=== PATIENT | female | born 1940 | race Caucasian/White ===

== ENCOUNTER 2017-06-07 13:45 | Observation (INO) | payer OTHER ==
[~2017-06-07] VITALS: Ht 152.4 cm; Wt 75.0 kg
[2017-06-07] MEDS ORDERED: SODIUM CHLORIDE 0.9% 1000ML 250 ML IV STA (14:16)
[2017-06-07] MEDS ORDERED: SODIUM CHLORIDE 0.9% 1000ML 1,000 ML IV STA (14:16)
--- NOTE | 2017-06-07 14:21 | EMERGENCY ROOM VISIT NOTE ---
History Report prepared by Pedro: Rob Mclean Under the Supervision of: Dr. Lester Jones M.D. First contact with patient: 14:03 Chief Complaint: CONFUSION Stated Complaint: MEMORY LOSS Nursing Triage Summary: triage note: pt son reports pt is confused and noticed it at approx 1315 today. pt denies any injury. pt able to report name and birthday and she is at the hospital, month and that today is tuesday. pt reports president is robin. pt reports year is 1999. pt tearful in triage and reports "why am i confused?" History of Present Illness The patient is a 76 year old female who presents to the Emergency Room with complaints of sudden onset confusion staring around an hour ago. The patient's son states that the patient was okay around 1030 this morning, and then later she started to lose some of her memory. The son states that the patient has never had anything like this before in the past, and she has not had any recent falls or illnesses. The patient denies any shortness of breath, chest pain, urinary symptoms, headache, trouble swallowing or speaking, or vision changes. Her son states that the patient had some headache on the ride over however. She states that she is not on any blood thinners or other medications. Source of History: patient, family Onset: an hour ago Position: other (global) Quality: other (confusion) Timing: other (sudden onset) Associated Symptoms: No chest pain, No SOB, No urinary symptoms Review of Systems See HPI for pertinent positives & negatives. A total of 10 systems reviewed and were otherwise negative. Past Medical & Surgical Medical Problems: (1) Shingles Surgical Problems: (1) H/O: hysterectomy (2) History of appendectomy Old medical records were reviewed. Nurse's notes were reviewed and I agree with. Family History Diabetes mellitus FH: lung disease FHx: cancer FHx: gallbladder disease Hypertension Social History Smoking Status: Never Smoker Marital Status: Housing Status: lives with family Occupation Status: retired Current/Historical Medications No Active Prescriptions or Reported Meds Allergies Coded Allergies: Naproxen (Verified Allergy, Intermediate, itch, 06/07/17) Codeine (Verified Allergy, Unknown, unknown, 06/07/17) Pseudoephedrine (Verified Adverse Reaction, Intermediate, saw black spots , 06/07/17) Physical Exam Vital Signs Date Time Temp Pulse Resp B/P (MAP) Pulse Ox O2 Delivery O2 Flow Rate FiO2 06/07/17 17:01 66 18 166/82 97 06/07/17 15:26 68 16 146/94 97 06/07/17 14:13 98 Room Air 06/07/17 14:12 73 20 181/98 96 Room Air 06/07/17 14:05 79 06/07/17 13:51 36.6 75 18 196/107 98 Room Air Physical Exam General: Non-ill appearing older female in no acute distress. Answering most questions appropriately. Alert to person place but not date. HEENT: Normal cephalic atraumatic. Pupils are equal round and reactive to light. Sclerae are anicteric. Extraocular movements are intact. Oropharynx is pink with moist mucous membranes. No swelling of the mouth lips or tongue. Neck: Supple with a midline trachea. No meningeal signs or stiffness, no JVD or bruits. No Stridor. Chest: Clear to auscultation bilaterally. No wheezes or rhonchi. No increased work of breathing. Heart: regular rate and rhythm. Abdomen: Soft nontender, nondistended without rebound guarding or rigidity. Extremities: No cyanosis clubbing or edema. No calf tenderness or assymetry Spine/Back. Non tender to palpation. No CVA tenderness Skin: Good turgor without rashes. Neurologic exam: Normal speech. Able to read and name items. No tremor. Finger to nose intact. Cranial nerves two through 12 are intact. Motor and sensation are intact and symmetrical throughout. Medical Decision & Procedures ER Provider Diagnostic Interpretation: Radiology results as stated below per my review and radiologist interpretation: CT HEAD WITHOUT CONTRAST (CT) CLINICAL HISTORY: episode of confusion MEMORY LOSS COMPARISON STUDY: No previous studies for comparison. TECHNIQUE: Axial CT of the brain is performed from the vertex to the skull base. IV contrast was not administered for this examination. A dose lowering technique was utilized adhering to the principles of ALARA. CT DOSE: 638.56 mGycm FINDINGS: No intra or extra-axial mass lesions are visualized. There is no CT evidence of acute cortical infarction. There is no evidence of midline shift. There is no acute hemorrhage. No calvarial fractures are visualized. There are minor white matter hypodensities likely on a small vessel basis. There is no evidence of pathologic ventricular dilatation. There is no evidence of acute sinusitis IMPRESSION: No acute intracranial findings. Electronically signed by: Domenic Gonzalez M.D. 06/07/2017 2:27 PM Dictated Date/Time: 06/07/2017 2:26 PM CHEST ONE VIEW PORTABLE CLINICAL HISTORY: Atypical chest pain COMPARISON STUDY: No previous studies for comparison. FINDINGS: There is a contour deformity of the left hemidiaphragm likely representing a focal eventration. The heart is normal in size. There is no failure. There is no focal pulmonary consolidation. There are no pleural effusions.[ IMPRESSION: Contour deformity of the left hemidiaphragm, likely secondary to a focal eventration. Otherwise negative AP portable chest Electronically signed by: Domenic Gonzalez M.D. 06/07/2017 2:44 PM Dictated Date/Time: 06/07/2017 2:43 PM Laboratory Results 06/07/17 14:35 Red Blood Count 3.99, Mean Corpuscular Volume 90.7, Mean Corpuscular Hemoglobin 29.3, Mean Corpuscular Hemoglobin Concent 32.3, Mean Platelet Volume 8.9, Neutrophils (%) (Auto) 57.9, Lymphocytes (%) (Auto) 30.1, Monocytes (%) (Auto) 8.9, Eosinophils (%) (Auto) 2.0, Basophils (%) (Auto) 0.8, Neutrophils # (Auto) 3.46, Lymphocytes # (Auto) 1.80, Monocytes # (Auto) 0.53, Eosinophils # (Auto) 0.12, Basophils # (Auto) 0.05 06/07/17 14:20 Test 06/07/17 14:05 06/07/17 14:20 06/07/17 14:35 06/07/17 14:42 Urine Color YELLOW Urine Appearance CLEAR (CLEAR) Urine pH 7.5 (4.5-7.5) Urine Specific [place] 1.013 (1.000-1.030) Urine Protein NEG (NEG) Urine Glucose (UA) NEG (NEG) Urine Ketones NEG (NEG) Urine Occult Blood NEG (NEG) Urine Nitrite NEG (NEG) Urine Bilirubin NEG (NEG) Urine Urobilinogen NEG (NEG) Urine Leukocyte Esterase NEG (NEG) Anion Gap 5.0 mmol/L (3-11) Est Creatinine Clear Calc Drug Dose 48.6 ml/min Estimated GFR () 71.5 Estimated GFR (Non- 61.7 BUN/Creatinine Ratio 14.8 (10-20) Calcium Level 9.7 mg/dl (8.5-10.1) Total Bilirubin 0.3 mg/dl (0.2-1) Direct Bilirubin < 0.1 mg/dl (0-0.2) Aspartate Amino Transf (AST/SGOT) 16 U/L (15-37) Alanine Aminotransferase (ALT/SGPT) 27 U/L (12-78) Alkaline Phosphatase 66 U/L (45-117) Total Protein 7.3 gm/dl (6.4-8.2) Albumin 3.9 gm/dl (3.4-5.0) Lipase 151 U/L (73-393) White Blood Count 7.48 K/uL (4.8-10.8) Red Blood Count 3.99 M/uL (4.2-5.4) Hemoglobin 11.7 g/dL (12.0-16.0) Hematocrit 36.2 % (37-47) Mean Corpuscular Volume 90.7 fL (80-100) Mean Corpuscular Hemoglobin 29.3 pg (25-34) Mean Corpuscular Hemoglobin Concent 32.3 g/dl (32-36) Platelet Count 246 K/uL (130-400) Mean Platelet Volume 8.9 fL (7.4-10.4) Neutrophils (%) (Auto) 57.9 % Lymphocytes (%) (Auto) 30.1 % Monocytes (%) (Auto) 8.9 % Eosinophils (%) (Auto) 2.0 % Basophils (%) (Auto) 0.8 % Neutrophils # (Auto) 3.46 K/uL (1.4-6.5) Lymphocytes # (Auto) 1.80 K/uL (1.2-3.4) Monocytes # (Auto) 0.53 K/uL (0.11-0.59) Eosinophils # (Auto) 0.12 K/uL (0-0.5) Basophils # (Auto) 0.05 K/uL (0-0.2) RDW Standard Deviation 45.4 fL (36.4-46.3) RDW Coefficient of Variation 13.8 % (11.5-14.5) Immature Granulocyte % (Auto) 0.3 % Immature Granulocyte # (Auto) 0.02 K/uL (0.00-0.02) Prothrombin Time 10.7 SECONDS (9.0-12.0) Prothromb Time International Ratio 1.0 (0.9-1.1) Activated Partial Thromboplast Time 26.2 SECONDS (21.0-31.0) Partial Thromboplastin Ratio 1.0 Bedside Troponin I < 0.030 ng/ml (0-0.045) Test 06/07/17 14:44 Bedside Glucose 107 mg/dl (70-90) Laboratory studies as stated above per my review. Medications Administered Medications (Trade) Dose Ordered Sig/Omayra Route Start Time Stop Time Status Last Admin Dose Admin Sodium Chloride 250 ml @ 999 mls/hr Q16M STAT IV 06/07/17 14:16 06/07/17 14:31 DC 06/07/17 14:46 999 MLS/HR Sodium Chloride 1,000 ml @ 100 mls/hr Q10H STAT IV 06/07/17 14:16 06/07/17 17:50 DC 06/07/17 14:46 100 MLS/HR Aspirin (Aspirin Chew) 324 mg NOW STAT PO 06/07/17 15:53 06/07/17 15:54 DC 06/07/17 16:03 324 MG ECG Indication: other (confusion) Rate (beats per minute): 70 Rhythm: normal sinus Findings: no acute ischemic change, no ectopy Comparison ECG Date: no prior available ED Course 1403: Past medical records reviewed. The patient was evaluated in room C8, and a complete history and physical examination were performed. 1416: Sodium Chloride 1000 ml @ 100 mls/hr IV, Sodium Chloride 250 ml @ 999 mls/ hr IV 1545: I reevaluated the patient, and she was doing well. I discussed the treatment plan with her, and she was agreeable. 1553: Aspirin 324mg PO 1600: Discussed the patient's case with Tameka Lara. The patient will be evaluated for further management. Medical Decision Differentials include, but are not limited to; transient global amnesia, stroke/ TIA, infection, electrolyte or metabolic abnormality. This patient comes in as described above. She had an episode where she was confused. She has amnesia to events this morning but has long-term memories. She's had no recent illness or fall or trauma. She looks well on exam and answers questions appropriately except for she does not know the date and this is atypical for her. During my exam, she actually seems to be much more lucid than when she presented and her son says that her symptoms have been rapidly clearing. She has no other neurologic exams. I do not think that she is a TPA candidate and I did not call a stroke alert. I think she most likely does have transient global amnesia. CAT scan of her head was unremarkable . she's no acute electrolyte or metabolic abnormalities and has nothing to suggest hypoglycemia. She has nothing to suggest acute coronary syndrome or arrhythmia. She was given aspirin 325 mg chewable. I do think she needs to be admitted to the hospital for further treatment and evaluation and further night neurologic evaluation. I have consulted the [facility] hospitalist who saw her in the emergency department and will admit her for these measures. Medication Reconcilliation Current Medication List: was personally reviewed by me Blood Pressure Screening Patient's blood pressure: Elevated blood pressure Blood pressure disposition: Elevated BP felt to be situational Consults Time Called: 1550 Consulting Physician: Tameka Lara Returned Call: 1600 Discussed the patient's case with Tameka Lara. The patient will be evaluated for further management. Impression Primary Impression: Altered mental state Additional Impression: Transient global amnesia Scribe Attestation The scribe's documentation has been prepared under my direction and personally reviewed by me in its entirety. I confirm that the note above accurately reflects all work, treatment, procedures, and medical decision making performed by me. Departure Information Dispostion Being Evaluated By Hospitalist Prescriptions No Active Prescriptions or Reported Meds Referrals Miasel Pearson III, M.D. (PCP) Patient Instructions My [facility] Problem Qualifiers
--- NOTE | 2017-06-07 14:28 | DIAGNOSTIC IMAGING REPORT ---
CT HEAD WITHOUT CONTRAST (CT) CLINICAL HISTORY: episode of confusion MEMORY LOSS COMPARISON STUDY: No previous studies for comparison. TECHNIQUE: Axial CT of the brain is performed from the vertex to the skull base. IV contrast was not administered for this examination. A dose lowering technique was utilized adhering to the principles of ALARA. CT DOSE: 638.56 mGycm FINDINGS: No intra or extra-axial mass lesions are visualized. There is no CT evidence of acute cortical infarction. There is no evidence of midline shift. There is no acute hemorrhage. No calvarial fractures are visualized. There are minor white matter hypodensities likely on a small vessel basis. There is no evidence of pathologic ventricular dilatation. There is no evidence of acute sinusitis IMPRESSION: No acute intracranial findings. Electronically signed by: Domenic Gonzalez M.D. 06/07/2017 2:27 PM Dictated Date/Time: 06/07/2017 2:26 PM
--- NOTE | 2017-06-07 14:45 | DIAGNOSTIC IMAGING REPORT ---
CHEST ONE VIEW PORTABLE CLINICAL HISTORY: Atypical chest pain COMPARISON STUDY: No previous studies for comparison. FINDINGS: There is a contour deformity of the left hemidiaphragm likely representing a focal eventration. The heart is normal in size. There is no failure. There is no focal pulmonary consolidation. There are no pleural effusions.[ IMPRESSION: Contour deformity of the left hemidiaphragm, likely secondary to a focal eventration. Otherwise negative AP portable chest Electronically signed by: Domenic Gonzalez M.D. 06/07/2017 2:44 PM Dictated Date/Time: 06/07/2017 2:43 PM
[2017-06-07 14:59] LABS: URINE APPEARANCE CLEAR (CLEAR); URINE BILIRUBIN NEG (NEG); URINE COLOR YELLOW; URINE NITRITE NEG (NEG); URINE PH 7.5 (4.5-7.5); URINE SPECIFIC GRAVITY 1.013 (1.000-1.030); UROBILINOGEN NEG (NEG)
[2017-06-07 15:11] LABS: MANUAL MICROSCOPIC REQUIRED? NO; REVIEW REQ? NO
[2017-06-07 15:22] LABS: PROTHROMBIN TIME (PATIENT) 10.7 SECONDS (9.0-12.0)
[2017-06-07 15:28] LABS: RED BLOOD COUNT 3.99 M/uL (4.2-5.4); WHITE BLOOD COUNT 7.48 K/uL (4.8-10.8)
[2017-06-07 15:30] LABS: HEMATOCRIT 36.2 % (37-47)
[2017-06-07 15:31] LABS: MEAN CELL VOLUME 90.7 fL (80-100); MEAN CORPUSCULAR HEMOGLOBIN 29.3 pg (25-34)
[2017-06-07 15:32] LABS: MEAN CORPUSCULAR HGB CONC 32.3 g/dl (32-36)
[2017-06-07 15:33] LABS: MEAN PLATELET VOLUME 8.9 fL (7.4-10.4); PLATELET COUNT 246 K/uL (130-400)
[2017-06-07] MEDS ORDERED: ASPIRIN 81 MG CHEW PO STA (15:53)
[2017-06-07 16:02] LABS: ALT/SGPT 27 U/L (12-78); BLOOD UREA NITROGEN 14 mg/dl (7-18); BUN/CREATININE RATIO 14.8 (10-20); CALCIUM 9.7 mg/dl (8.5-10.1); CARBON DIOXIDE 29 mmol/L (21-32); CHLORIDE 107 mmol/L (98-107); CREATININE 0.91 mg/dl (0.60-1.20); GLUCOSE 91 mg/dl (70-99); POTASSIUM 4.4 mmol/L (3.5-5.1); SODIUM 141 mmol/L (136-145)
[2017-06-07 16:05] LABS: ALKALINE PHOSPHATASE 66 U/L (45-117); AST/SGOT 16 U/L (15-37)
[2017-06-07 16:17] LABS: BASO % 0.8 %; BASO ABS # 0.05 K/uL (0-0.2); COMPLETE YES; IG% 0.3 %; LYMPH % 30.1 %; MONO % 8.9 %; NEUT % 57.9 %
[2017-06-07] MEDS ORDERED: ACETAMINOPHEN 325 MG TAB PO PRN (17:00)
[2017-06-07] MEDS ORDERED: ONDANSETRON INJ 2 MG/ML 2 ML VIAL IV PRN (17:00)
[2017-06-07] MEDS ORDERED: PHARMACIST DISCHARGE MED REC CONSULT PRN (17:15)
[2017-06-07] MEDS ORDERED: POLYETHYLENE (MIRALAX) 17 GM PACK PO PRN (18:00)
[2017-06-07 18:20] VITALS: BP 169/85; PULSE 67; TEMP 36.8; O2SAT 96
--- NOTE | 2017-06-07 18:28 | History and Physical ---
History & Physical Date & Time of Service: Jun 07, 2017 at 17:08 Chief Complaint: Memory Loss Primary Care Physician: Misael Pearson III, M.D. History of Present Illness Source: family Patient is a 76 yo female who was brought to the ER today by her son who noticed the patient was having difficulty remembering anything from today or yesterday. Her daughter who lives with the patient was at the bedside and states she was not present at home this morning, however she was told that the patient was very confused this morning and could not remember things. Last known well time was 12:30 PM. Per the patient's son, she was normal this AM, answering questions and talking. She then went to her car and drove somewhere with her son and following behind, but when they reached the destination the patient sat in her parked car and didn't come out for a while. When she went inside she was talking with her and her son and was saying things that did not make sense and her became angry and was frustrated with her, so the son decided to bring her to the hospital. Her daughter says she is still having confusion and cannot remember things about the last few days, but denies any other changes. The patient reports having occasional dizzy episodes that occur randomly, once while in bed and once while grocery shopping. She had a mechanical fall about 2 weeks ago but denies hitting her head. She otherwise denies any changes to her health, any complaints , any medication ingestion, and denies any exposure to insect bites or unusual animals other than her own. Family History Diabetes mellitus FH: lung disease FHx: cancer FHx: gallbladder disease Hypertension Social History Smoking Status: Never Smoker Alcohol Use: occasionally Marital Status: Housing status: lives with family Occupational Status: retired Multi-Drug Resistant Organisms History of MDRO: No Allergies Coded Allergies: Naproxen (Verified Allergy, Intermediate, itch, 06/07/17) Codeine (Verified Allergy, Unknown, unknown, 06/07/17) Pseudoephedrine (Verified Adverse Reaction, Intermediate, saw black spots , 06/07/17) Home Medications No Active Prescriptions or Reported Meds Review of Systems Constitutional: No fever, No chills, No weight loss, No weakness Eyes: No worsening of vision, No eye pain, No redness, No diplopia ENT: No hearing loss, No nasal symptoms, No sore throat, No trouble swallowing Respiratory: No cough, No wheezing, No shortness of breath, No hemoptysis Cardiovascular: No chest pain, No edema, No claudication, No palpitations Abdomen: No pain, No nausea, No vomiting, No diarrhea, No constipation Musculoskeletal: No joint pain, No muscle pain, No swelling, No calf pain Genitourinary - Female: No dysuria, No urinary frequency, No urinary urgency, No problem reported Neurologic: + memory loss, No numbness/tingling, No vertigo, No balance problems Psychiatric: No depression symptoms, No anxiety, No insomnia, No substance abuse Endocrine: No problem reported Hematologic / Lymphatic: No problem reported Integumentary: No rash, No bleeding, No problem reported Physical Exam Vital Signs Date Time Temp Pulse Resp B/P (MAP) Pulse Ox O2 Delivery O2 Flow Rate FiO2 06/07/17 17:01 66 18 166/82 97 06/07/17 15:26 68 16 146/94 97 06/07/17 14:13 98 Room Air 06/07/17 14:12 73 20 181/98 96 Room Air 06/07/17 14:05 79 06/07/17 13:51 36.6 75 18 196/107 98 Room Air General Appearance: WD/WN, no apparent distress Head: normocephalic, atraumatic Eyes: PERRL, EOMI, sclerae normal ENT: hearing grossly normal, pharynx normal Neck: supple, no JVD, no carotid bruits, trachea midline Respiratory/Chest: chest non-tender, lungs clear, normal breath sounds, no respiratory distress Cardiovascular: regular rate, rhythm, no edema, no gallop, no JVD, no murmur Abdomen/GI: normal bowel sounds, non tender, soft, no organomegaly Back: normal range of motion Extremities/Musculoskelatal: no calf tenderness, normal capillary refill, normal range of motion, + pedal edema Neurologic/Psych: no motor/sensory deficits, alert, normal mood/affect, oriented x 3 Skin: normal color, warm/dry, no rash Diagnostics Laboratory Results Results Past 24 Hours Test 06/07/17 14:05 06/07/17 14:20 06/07/17 14:35 06/07/17 14:42 Range/Units Urine Color YELLOW Urine Appearance CLEAR CLEAR Urine pH 7.5 4.5-7.5 Urine Specific [place] 1.013 1.000-1.030 Urine Protein NEG NEG Urine Glucose (UA) NEG NEG Urine Ketones NEG NEG Urine Occult Blood NEG NEG Urine Nitrite NEG NEG Urine Bilirubin NEG NEG Urine Urobilinogen NEG NEG Urine Leukocyte Esterase NEG NEG Sodium Level 141 136-145 mmol/L Potassium Level 4.4 3.5-5.1 mmol/L Chloride Level 107 98-107 mmol/L Carbon Dioxide Level 29 21-32 mmol/L Anion Gap 5.0 3-11 mmol/L Blood Urea Nitrogen 14 7-18 mg/dl Creatinine 0.91 0.60-1.20 mg/dl Est Creatinine Clear Calc Drug Dose 48.6 ml/min Estimated GFR () 71.5 Estimated GFR (Non- 61.7 BUN/Creatinine Ratio 14.8 10-20 Random Glucose 91 70-99 mg/dl Calcium Level 9.7 8.5-10.1 mg/dl Total Bilirubin 0.3 0.2-1 mg/dl Direct Bilirubin < 0.1 0-0.2 mg/dl Aspartate Amino Transf (AST/SGOT) 16 15-37 U/L Alanine Aminotransferase (ALT/SGPT) 27 12-78 U/L Alkaline Phosphatase 66 45-117 U/L Total Protein 7.3 6.4-8.2 gm/dl Albumin 3.9 3.4-5.0 gm/dl Lipase 151 73-393 U/L White Blood Count 7.48 4.8-10.8 K/uL Red Blood Count 3.99 4.2-5.4 M/uL Hemoglobin 11.7 12.0-16.0 g/dL Hematocrit 36.2 37-47 % Mean Corpuscular Volume 90.7 80-100 fL Mean Corpuscular Hemoglobin 29.3 25-34 pg Mean Corpuscular Hemoglobin Concent 32.3 32-36 g/dl Platelet Count 246 130-400 K/uL Mean Platelet Volume 8.9 7.4-10.4 fL Neutrophils (%) (Auto) 57.9 % Lymphocytes (%) (Auto) 30.1 % Monocytes (%) (Auto) 8.9 % Eosinophils (%) (Auto) 2.0 % Basophils (%) (Auto) 0.8 % Neutrophils # (Auto) 3.46 1.4-6.5 K/uL Lymphocytes # (Auto) 1.80 1.2-3.4 K/uL Monocytes # (Auto) 0.53 0.11-0.59 K/uL Eosinophils # (Auto) 0.12 0-0.5 K/uL Basophils # (Auto) 0.05 0-0.2 K/uL RDW Standard Deviation 45.4 36.4-46.3 fL RDW Coefficient of Variation 13.8 11.5-14.5 % Immature Granulocyte % (Auto) 0.3 % Immature Granulocyte # (Auto) 0.02 0.00-0.02 K/uL Prothrombin Time 10.7 9.0-12.0 SECONDS Prothromb Time International Ratio 1.0 0.9-1.1 Activated Partial Thromboplast Time 26.2 21.0-31.0 SECONDS Partial Thromboplastin Ratio 1.0 Bedside Troponin I < 0.030 0-0.045 ng/ml Test 06/07/17 14:44 Range/Units Bedside Glucose 107 70-90 mg/dl Microbiology Results 06/07/17 Urine Culture, Received Pending Impression Assessment and Plan AMNESIA: -last known well at 12:30 PM today -need to rule out CVA -has lost memory of earlier today, most of yester, and some of Tuesday -also has intermittent dizziness without any warning -CT head negative -will consult Neurology -obtain MRA head and neck and MRI brain -TTE ordered -check for lyme, RPR, B12 and folate -no prior medical history, no history of HTN, will therefore just monitor BP for now -obtain lipid panel and HbA1c -start aspirin and statin -fall precautions -obtain serial CM Level of Care Telemetry Resuscitation Status FULL RESUSCITATION VTE Prophylaxis VTE Risk Assessment Done? Y/N: Yes Risk Level: Moderate Given or contraindicated: Enoxaparin (Lovenox)SQ
[2017-06-07 19:24] VITALS: BP 169/85; PULSE 67; TEMP 36.8; O2SAT 96; Ht 152.4 cm; Wt 75.0 kg
--- NOTE | 2017-06-07 19:29 | DIAGNOSTIC IMAGING REPORT ---
ORBITS FOR MRI CLINICAL HISTORY: 76 years-old Female presenting with MRI CLEARANCE, DAUGHTER DID SCREENING. TECHNIQUE: 3 views of the orbits were obtained. COMPARISON: CT head from 06/07/2017. FINDINGS: No radiopaque or metallic object projects over the orbits. Paranasal sinuses grossly clear. Bony nasal septum midline. Visualized portion of the calvarium grossly normal. IMPRESSION: No intraorbital metallic foreign body to preclude MRI. Electronically signed by: Isacc Martinez M.D. 06/07/2017 7:28 PM Dictated Date/Time: 06/07/2017 7:26 PM
[2017-06-07] MEDS ORDERED: IV FLUIDS COMPLETED PRN (19:45)
[2017-06-07 19:55] LABS: LYME DISEASE AB IGG NEG (NEG)
[2017-06-07 19:56] LABS: LYME DISEASE AB IGM NEG (NEG)
[2017-06-07 20:00] VITALS: O2SAT 96
[2017-06-07] MEDS ORDERED: ENOXAPARIN 30 MG/0.3 ML SYR SC SCH (21:00)
--- NOTE | 2017-06-07 21:26 | DIAGNOSTIC IMAGING REPORT ---
BRAIN WITHOUT CONTRAST CLINICAL HISTORY: 76 years-old Female presenting with Stroke. TECHNIQUE: Multisequence, multiplanar MR imaging of the brain was performed without the use of intravenous contrast. IV contrast: None. COMPARISON: CT head from 06/07/2017. FINDINGS: Ventricular and sulcal enlargement with proportional parenchymal volume loss, likely age-related. Periventricular and subcortical white matter T2/FLAIR hyperintensity, nonspecific but likely chronic small vessel ischemic change. No mass effect or midline shift. No hemorrhage or acute territorial infarct. No extra-axial fluid collection. T2 skull base flow voids preserved. Bilateral mary's igloo lenses are not present. Paranasal sinuses and mastoid air cells clear. Calvarium intact. IMPRESSION: No acute intracranial abnormality. Electronically signed by: Isacc Martinez M.D. 06/07/2017 9:25 PM Dictated Date/Time: 06/07/2017 9:22 PM
[2017-06-07] MEDS ORDERED: GADAVIST IV PRN (21:30)
--- NOTE | 2017-06-07 21:30 | DIAGNOSTIC IMAGING REPORT ---
MRA NECK COMBO CLINICAL HISTORY: 76 years-old Female presenting with stroke. TECHNIQUE: MR angiography of the neck was performed before and after the administration of intravenous contrast. 3-D volumetric and/or maximum intensity projection (MIP) images were subsequently reconstructed for review. IV contrast: 7 mL of Gadavist. All measurements were calculated based on NASCET-like criteria. COMPARISON: None. FINDINGS: Bilateral common carotid and internal carotid arteries patent. Tortuosity of the internal carotid arteries may suggest chronic hypertension. Codominant vertebral arteries, which are patent. No significant stenosis, aneurysm, or vessel occlusion. Origins of the cervical vessels patent. Three-vessel aortic arch. Limited intracranial vessel evaluation is within normal limits. IMPRESSION: 1. No significant stenosis, aneurysm, or focal vessel occlusion. Electronically signed by: Isacc Martinez M.D. 06/07/2017 9:29 PM Dictated Date/Time: 06/07/2017 9:25 PM
[2017-06-07 23:17] LABS: RAPID PLASMA REAGIN NONREACTIVE (NONREACT)
[2017-06-07 23:31] VITALS: BP 163/83; PULSE 61; TEMP 36.9; O2SAT 97
[2017-06-07 23:46] LABS: CKMB/CK RATIO 2.2 (0-3.0)
[2017-06-08 04:45] VITALS: BP 129/84; PULSE 63; TEMP 36.6; O2SAT 96
[2017-06-08 07:36] LABS: BASO % 0.9 %; BASO ABS # 0.05 K/uL (0-0.2); COMPLETE YES; EOS % 3.7 %; HEMATOCRIT 37.4 % (37-47); IG% 0.2 %; LYMPH % 41.7 %; LYMPH ABS # 2.37 K/uL (1.2-3.4); MEAN CORPUSCULAR HEMOGLOBIN 30.6 pg (25-34); MEAN CORPUSCULAR HGB CONC 34.8 g/dl (32-36); MEAN PLATELET VOLUME 9.6 fL (7.4-10.4); MONO % 10.5 %; PLATELET COUNT 187 K/uL (130-400); RED BLOOD COUNT 4.25 M/uL (4.2-5.4); WHITE BLOOD COUNT 5.69 K/uL (4.8-10.8)
[2017-06-08 07:53] LABS: BLOOD UREA NITROGEN 13 mg/dl (7-18); BUN/CREATININE RATIO 16.1 (10-20); CALCIUM 8.8 mg/dl (8.5-10.1); CARBON DIOXIDE 28 mmol/L (21-32); CHLORIDE 111 mmol/L (98-107); CHOLESTEROL 211 mg/dl (0-200); CREATININE 0.79 mg/dl (0.60-1.20); GLUCOSE 86 mg/dl (70-99); SODIUM 143 mmol/L (136-145); TRIGLYCERIDES 149 mg/dl (0-150); VERY LOW DENSITY LIPOPROT CALC 30 mg/dl
[2017-06-08 08:07] LABS: CHOLESTEROL/HDL RATIO 4.2; CKMB/CK RATIO 2.2 (0-3.0); HDL CHOLESTEROL 50 mg/dl; LDL CHOLESTEROL CALCULATED 131 mg/dl
[2017-06-08 08:24] LABS: ESTIMATED AVERAGE GLUCOSE 100 mg/dl; HA1C FLAG Normal (Normal)
[2017-06-08] MEDS ORDERED: ASPIRIN 81 MG ECTAB PO SCH (09:00)
[2017-06-08] MEDS ORDERED: ATORVASTATIN 10 MG TAB PO SCH (09:00)
--- NOTE | 2017-06-08 09:11 | ECHOCARDIOGRAM REPORT ---
*NOTICE TO RECEIVING [facility] [employer] This information is strictly Confidential and protected under [place] law. [place] law prohibits you from making any further disclosure of this information unless further disclosure is expressly permitted by the written consent of the person to whom it pertains or is authorized by law. A general authorization for the release of medical or other information is not sufficient for this purpose. Hospital accepts no responsibility if the information is made available to any other person, INCLUDING THE PATIENT. Interpretation Summary * Name: FABIAN SANTIAGO Study Date: 06/08/2017 07:37 AM BP: 129/84 mmHg * Patient Location: [facility] HR: 63 * : 1940 (M/d/yyyy) Gender: Female Height: 60 in * Age: 76 yrs Ethnicity: CA Weight: 167 lb * Ordering Physician: Araseli Waller * Referring Physician: Self, Referred * Performed By: Jennie Snider RDCS * * Reason For Study: Cerebral ischemia/embolus * BSA: 1.7 m2 * -- Conclusions -- * Normal LV chamber size with mild concentric LVH. * Hyperdynamic LV systolic function, EF >70%. * No segmental left ventricular wall motion abnormalities are noted. * Grade I diastolic dysfunction. * No significant valvular pathology. * The interatrial septum is intact with no evidence for an atrial septal defect. * Injection of contrast documented no interatrial shunt. Procedure Details * A complete two-dimensional transthoracic echocardiogram was performed (2D, M-mode, Doppler and color flow Doppler). * A saline contrast injection was performed to assess for cardiac shunting. * The injection was performed through an intravenous line in the right arm. * The attending nurse who injected the saline contrast was Francesca Antoine RN. * A total of 20 cc of agitated saline was given. Left Ventricle * The left ventricle is normal in size. * There is no thrombus. * There is mild concentric left ventricular hypertrophy. * Ejection Fraction = >70 %. * The left ventricle is hyperdynamic. * No segmental left ventricular wall motion abnormalities are noted. * The left ventricular wall motion is normal. Right Ventricle * The right ventricular cavity size is normal (basal dimension <4.2 cm in right ventricular apical 4-chamber view). * The right ventricular systolic function is normal as assessed by tricuspid annular plane systolic excursion (TAPSE) (normal >1.5 cm). Atria * The left atrial size is normal. * Right atrial size is normal. * The interatrial septum is intact with no evidence for an atrial septal defect. * Injection of contrast documented no interatrial shunt. Mitral Valve * The mitral valve is normal in structure and function. Tricuspid Valve * The tricuspid valve is normal in structure and function. Aortic Valve * The aortic valve is normal in structure and function. Pulmonic Valve * The pulmonary valve is not well seen, but the Doppler examination is normal without significant regurgitation or stenosis. Great Vessels * The aortic root and proximal ascending aorta are normal sized. Pericardium/Pleural * There is no pericardial effusion. Left Ventricular Diastolic Function * Grade I diastolic dysfunction, (abnormal relaxation pattern). MMode 2D Measurements and Calculations IVSd 1.1 cm LVIDd 3.2 cm LVIDs 2.0 cm LVPWd 1.1 cm IVS/LVPW 1.0 FS 36.7 % EDV(Teich) 39.8 ml ESV(Teich) 12.8 ml EF(Teich) 68.0 % EDV(cubed) 31.7 ml ESV(cubed) 8.0 ml EF(cubed) 74.7 % LV mass(C)d 105.2 grams LV mass(C)dI 60.8 grams/m\S\2 SV(Teich) 27.1 ml SI(Teich) 15.7 ml/m\S\2 SV(cubed) 23.6 ml SI(cubed) 13.7 ml/m\S\2 Ao root diam 2.8 cm Ao root area 6.0 cm\S\2 ACS 1.5 cm LA dimension 2.9 cm asc Aorta Diam 2.8 cm LA/Ao 1.0 LVOT diam 2.0 cm LVOT area 3.0 cm\S\2 LVAd ap4 20.7 cm\S\2 LVLd ap4 7.3 cm EDV(MOD-sp4) 48.3 ml EDV(sp4-el) 49.9 ml LVAs ap4 9.2 cm\S\2 LVLs ap4 5.8 cm ESV(MOD-sp4) 12.7 ml ESV(sp4-el) 12.4 ml EF(MOD-sp4) 73.6 % EF(sp4-el) 75.2 % LVAd ap2 17.8 cm\S\2 LVLd ap2 7.3 cm EDV(MOD-sp2) 35.2 ml EDV(sp2-el) 36.5 ml LVAs ap2 8.4 cm\S\2 LVLs ap2 6.5 cm ESV(MOD-sp2) 10.3 ml ESV(sp2-el) 9.2 ml EF(MOD-sp2) 70.6 % EF(sp2-el) 74.8 % LVLd %diff 0.90 % EDV(MOD-bp) 41.4 ml LVLs %diff 10.2 % ESV(MOD-bp) 11.6 ml EF(MOD-bp) 72.1 % SV(MOD-sp4) 35.5 ml SI(MOD-sp4) 20.6 ml/m\S\2 SV(MOD-sp2) 24.8 ml SI(MOD-sp2) 14.4 ml/m\S\2 SV(MOD-bp) 29.9 ml SI(MOD-bp) 17.3 ml/m\S\2 SV(sp4-el) 37.5 ml SI(sp4-el) 21.7 ml/m\S\2 SV(sp2-el) 27.3 ml SI(sp2-el) 15.8 ml/m\S\2 Doppler Measurements and Calculations MV E max aline 78.5 cm/sec MV A max aline 94.8 cm/sec MV E/A 0.83 MV dec time 0.25 sec Ao V2 max 124.3 cm/sec Ao max PG 6.2 mmHg Ao max PG (full) 3.3 mmHg CESILIA(V,A) 2.1 cm\S\2 CESILIA(V,D) 2.1 cm\S\2 LV V1 max PG 2.9 mmHg LV V1 max 85.4 cm/sec PA V2 max 81.4 cm/sec PA max PG 2.7 mmHg PA acc slope 469.8 cm/sec\S\2 PA acc time 0.13 sec PI max aline 157.5 cm/sec PI max PG 9.9 mmHg PI dec slope 244.8 cm/sec\S\2 PI P1/2t 188.4 msec TR max aline 225.6 cm/sec PA pr(Accel) 20.4 mmHg
[2017-06-08 11:30] VITALS: BP 147/82; PULSE 61; TEMP 36.4; O2SAT 96
--- NOTE | 2017-06-08 15:43 | Neurology Consultation ---
Neurology Consultation Date of Consultation: Jun 08, 2017. Attending Physician: Efrain Weston M.D. Primary Care Physician: Misael Pearson III, M.D. Reason for Consultation: amnesia History of Present Illness Source: patient Dunia is a 76 yo female who was brought to the ER today by her son who noticed the patient was having difficulty remembering anything from today or yesterday. Last known well time was 12:30 PM. Per the patient's son reported in chart, she was normal this AM, answering questions and talking. She then went to her car and drove somewhere with her son and following behind, but when they reached the destination the patient sat in her parked car and didn't come out for a while. When she went inside she was talking with her and her son and was saying things that did not make sense and her became angry and was frustrated with her, so the son decided to bring her to the hospital. She had a mechanical fall about 2 weeks ago but denies hitting her head. She states she still does not remember anything after she gave her son a sandwich for lunch. She then remembers being in the ED and talking to some people and her son stating she coming around. She does not remember anything of the events prior to this. denies no increased stressors, CP, SOB,abdominal pain, weakness, numbness, tingling, history of seizure, N, V, cough, fever chills, night sweats , vision changes, hearing loss, swallow difficulty. currently has a slight pressure headache Past Medical/Surgical History Medical Problems: (1) Altered mental state Status: Acute (2) Transient global amnesia Status: Acute Social History Smoking Status: Never smoker Alcohol Use: occasionally Marital Status: Housing Status: lives with family Occupation Status: retired Allergies Coded Allergies: Naproxen (Verified Allergy, Intermediate, itch, 06/07/17) Codeine (Verified Allergy, Unknown, unknown, 06/07/17) Pseudoephedrine (Verified Adverse Reaction, Intermediate, saw black spots , 06/07/17) Current Inpatient Medications Current Inpatient Medications Medications (Trade) Dose Ordered Sig/Omayra Route Start Time Stop Time Status Last Admin Dose Admin Enoxaparin Sodium (Lovenox Inj) 30 mg HS SC 06/07/17 21:00 07/07/17 20:59 06/07/17 21:29 30 MG Acetaminophen (Tylenol Tab) 650 mg Q4H PRN PO 06/07/17 17:00 07/07/17 16:59 Ondansetron HCl (Zofran Inj) 4 mg Q6H PRN IV 06/07/17 17:00 07/07/17 16:59 Aspirin (Ecotrin Tab) 81 mg QAM PO 06/08/17 09:00 07/08/17 08:59 06/08/17 08:39 81 MG Polyethylene (Miralax Powder Packet) 17 gm DAILY PRN PO 06/07/17 18:00 07/07/17 17:59 Atorvastatin Calcium (Lipitor Tab) 10 mg QAM PO 06/08/17 09:00 07/08/17 08:59 06/08/17 08:39 10 MG Miscellaneous Information (Pharmacist Discharge Med Rec Consult) 1 ea UD PRN N/A 06/07/17 17:15 07/07/17 17:14 Miscellaneous (Iv Fluids Completed) 1 ea PRN PRN N/A 06/07/17 19:45 06/07/18 19:44 Gadobutrol (Gadavist) 7 mmol UD PRN IV 06/07/17 21:30 06/11/17 21:29 Physical Exam Vital Signs (Past 24 Hrs): Date Time Temp Pulse Resp B/P (MAP) Pulse Ox O2 Delivery O2 Flow Rate FiO2 06/08/17 12:00 Room Air 06/08/17 11:30 36.4 61 16 147/82 (103) 96 Room Air 06/08/17 08:00 Room Air 06/08/17 04:45 36.6 63 20 129/84 (99) 96 Room Air 06/08/17 04:05 Room Air 06/08/17 00:05 Room Air 06/08/17 00:05 Room Air 06/07/17 23:31 36.9 61 20 163/83 (109) 97 Room Air 06/07/17 20:00 96 Room Air 06/07/17 19:24 36.8 67 18 169/85 96 Room Air 06/07/17 18:20 36.8 67 18 169/85 (113) 96 Room Air 06/07/17 17:01 66 18 166/82 97 06/07/17 15:26 68 16 146/94 97 Physical Exam: Constitutional: appearance nourished, healthy and normal Ears, Nose, Mouth and Throat: mucous membranes moist, no injection and skin normal, eyes normal Cardiovascular: normal S-1 and S-2 and regular rate and rhythm Respiratory: clear to auscultation (CTA) and no rales, rhonchi or wheeze Musculoskeletal: no peripheral edema and good distal pulses Skin: no stigmata of neurocutaneous disease noted and normal and intact Eyes: extraocular muscles intact (EOMI) and pupils equal, round and reactive to light (PERRL) NEUROLOGIC EXAMINATION: Mental status: Alert and interactive Oriented to full date and location Oriented to person Speech fluent with no evidence of aphasia Cranial Nerves smile eye brow raise symmetric, tongue midline Reflexes: Deep tendon reflexes were symmetrical and graded 2/5. Plantar responses were flexor. Sensory: vibration , cool touch in tact Coordination: Romberg absent Gait/Stance: Posture normal. Gait normal: with steady with steps, base, turning, heel tandem gait. Motor: Negative for pronator drift of out stretched arms with eyes closed. 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, intrinsics 5/5 bilaterally, hip flex plantar flex ext bilaterally 5/5 Laboratory Results Past 24 Hours: 06/08/17 07:23 Red Blood Count 4.25, Mean Corpuscular Volume 88.0, Mean Corpuscular Hemoglobin 30.6, Mean Corpuscular Hemoglobin Concent 34.8, Mean Platelet Volume 9.6, Neutrophils (%) (Auto) 43.0, Lymphocytes (%) (Auto) 41.7, Monocytes (%) (Auto) 10.5, Eosinophils (%) (Auto) 3.7, Basophils (%) (Auto) 0.9, Neutrophils # (Auto ) 2.45, Lymphocytes # (Auto) 2.37, Monocytes # (Auto) 0.60, Eosinophils # (Auto ) 0.21, Basophils # (Auto) 0.05 06/08/17 07:23 Test 06/07/17 18:22 06/08/17 07:23 Vitamin B12 Level 788 pg/mL (211-911) Folate > 24.00 ng/mL (>5.38) Rapid Plasma Reagin NONREACTIVE (NONREACT) Lyme Disease IgG Antibody NEG (NEG) Lyme Disease IgM Antibody NEG (NEG) White Blood Count 5.69 K/uL (4.8-10.8) Red Blood Count 4.25 M/uL (4.2-5.4) Hemoglobin 13.0 g/dL (12.0-16.0) Hematocrit 37.4 % (37-47) Mean Corpuscular Volume 88.0 fL (80-100) Mean Corpuscular Hemoglobin 30.6 pg (25-34) Mean Corpuscular Hemoglobin Concent 34.8 g/dl (32-36) Platelet Count 187 K/uL (130-400) Mean Platelet Volume 9.6 fL (7.4-10.4) Neutrophils (%) (Auto) 43.0 % Lymphocytes (%) (Auto) 41.7 % Monocytes (%) (Auto) 10.5 % Eosinophils (%) (Auto) 3.7 % Basophils (%) (Auto) 0.9 % Neutrophils # (Auto) 2.45 K/uL (1.4-6.5) Lymphocytes # (Auto) 2.37 K/uL (1.2-3.4) Monocytes # (Auto) 0.60 K/uL (0.11-0.59) Eosinophils # (Auto) 0.21 K/uL (0-0.5) Basophils # (Auto) 0.05 K/uL (0-0.2) RDW Standard Deviation 41.0 fL (36.4-46.3) RDW Coefficient of Variation 12.8 % (11.5-14.5) Immature Granulocyte % (Auto) 0.2 % Immature Granulocyte # (Auto) 0.01 K/uL (0.00-0.02) Anion Gap 4.0 mmol/L (3-11) Est Creatinine Clear Calc Drug Dose 55.7 ml/min Estimated GFR () 84.9 Estimated GFR (Non- 73.2 BUN/Creatinine Ratio 16.1 (10-20) Estimated Average Glucose 100 mg/dl Hemoglobin A1c 5.1 % (4.5-5.6) Calcium Level 8.8 mg/dl (8.5-10.1) Total Creatine Kinase 37 U/L (26-192) Creatine Kinase MB 0.8 ng/ml (0.5-3.6) Creatine Kinase MB Ratio 2.2 (0-3.0) Troponin I < 0.015 ng/ml (0-0.045) Triglycerides Level 149 mg/dl (0-150) Cholesterol Level 211 mg/dl (0-200) HDL Cholesterol 50 mg/dl LDL Cholesterol, Calculated 131 mg/dl VLDL Cholesterol, Calculated 30 mg/dl Cholesterol/HDL Ratio 4.2 Thyroid Stimulating Hormone (TSH) 1.070 uIu/ml (0.300-4.500) Imaging MRI brain with and without contrast- Ventricular and sulcal enlargement with proportional parenchymal volume loss, likely age-related. Periventricular and subcortical white matter T2/FLAIR hyperintensity, nonspecific but likely chronic small vessel ischemic change. No mass effect or midline shift. No hemorrhage or acute territorial infarct. No extra-axial fluid collection. T2 skull base flow voids preserved. Bilateral igiugig lenses are not present. Paranasal sinuses and mastoid air cells clear. Calvarium intact. MRA neck - . No significant stenosis, aneurysm, or focal vessel occlusion. TTE- Normal LV chamber size with mild concentric LVH. * Hyperdynamic LV systolic function, EF >70%. * No segmental left ventricular wall motion abnormalities are noted. * Grade I diastolic dysfunction. * No significant valvular pathology. * The interatrial septum is intact with no evidence for an atrial septal defect. * Injection of contrast documented no interatrial shunt. Impression 76 year old female with sudden onset of amnesia currently back to baseline Plan 1. MRI brain no areas of stroke or lesions 2. TTE- no ASD 3. EEG pending official document- read is normal 4. transient global amnesia is a diagnosis of exclusion. no hx of epilepsy, lasted less then 24 hours 5. lyme and RPR negative 6. no new medication started recently 7. aspirin 81 mg and lipitor started would continue I have seen and discussed above patient with Dr Alyse Armas, neurology Pt seen and examined, spoke with son. Pt was awake, alert, functional, kept asking same question. Did not recall that sister (20 years). With neg eval suspect transient global amnesia. Rec asa, control of vascular risk factors. Follow-up with us post dc. Discussed with Dr. Cope. LAUREANO Armas MD
--- NOTE | 2017-06-08 15:55 | ELECTROENCEPHALOGRAPH REPORT ---
CLINICAL DIAGNOSIS: Transient amnesia, question seizure disorder. ELECTROENCEPHALOGRAM DIAGNOSIS: Essentially normal during wakefulness. DESCRIPTION OF TRACING: This EEG was done as a bedside recording and is of good technical quality with a few muscle movement artifacts occurring episodically and captured on simultaneous video analysis of patient movement and behavior. Photic stimulation was performed. Hyperventilation was not. Drowsiness and light sleep were not recorded. During wakefulness, there is evidence for normal appearing background rhythm in the alpha range of up to 10 Hz of maximum frequency and 30 microvolts of maximum amplitude. This is maximum posterior head regions and bilaterally symmetrical. Polymorphic mid frequency theta activity is seen over all head regions without clear focal or regional predominance. Anterior head region maximum bilaterally symmetrical low voltage fast activity in the beta range is present. Photic stimulation provoked some modest driving response without a photomyogenic or photoparoxysmal component. At no time during the waking tracing is there evidence for potentially epileptogenic activity in the form of polyspike or spike wave bursts, focal sharp waves or focal spikes. INTERPRETATION: This EEG is essentially normal during wakefulness without evidence for focal or generalized encephalopathy and without evidence for potentially epileptogenic activity.
[2017-06-08 15:57] VITALS: BP 149/79; PULSE 60; TEMP 36.5; O2SAT 94
--- NOTE | 2017-06-08 16:24 | Progress Note ---
Medicine Progress Note Date & Time of Visit: Jun 08, 2017 at 16:02. Subjective Pt was seen and examined Sitting in bed very comfortable with son and daughter in law at bedside she said that she does feels a little dizzy when she moves her headache that is not new otherwise pt said that she feels fine she said that she did not recall anything that happened yesterday before coming to the hospital She denies any chest pain, palpitation and SOB Objective Last 8 Hrs Date Time Temp Pulse Resp B/P (MAP) Pulse Ox O2 Delivery O2 Flow Rate FiO2 06/08/17 15:57 36.5 60 16 149/79 (102) 94 Room Air 06/08/17 12:00 Room Air 06/08/17 11:30 36.4 61 16 147/82 (103) 96 Room Air Physical Exam: General- very pleasant, no acute distress Head- atraumatic Eyes- PERRL, EOMI ENT- oropharynx clear Neck- supple, no JVD Lungs- clear to auscultation, no acute distress Heart- regular rhythm; no murmur Abdomen- normal bowel sounds, soft Extremities- no calf tenderness Neuro- alert, oriented x 3; PERRL, EOMI Skin- warm & dry Laboratory Results: Last 24 Hours Test 06/07/17 18:22 06/07/17 22:57 06/08/17 07:23 Vitamin B12 Level 788 pg/mL Folate > 24.00 ng/mL Rapid Plasma Reagin NONREACTIVE Lyme Disease IgG Antibody NEG Lyme Disease IgM Antibody NEG Total Creatine Kinase 46 U/L 37 U/L Creatine Kinase MB 1.0 ng/ml 0.8 ng/ml Creatine Kinase MB Ratio 2.2 2.2 Troponin I < 0.015 ng/ml < 0.015 ng/ml White Blood Count 5.69 K/uL Red Blood Count 4.25 M/uL Hemoglobin 13.0 g/dL Hematocrit 37.4 % Mean Corpuscular Volume 88.0 fL Mean Corpuscular Hemoglobin 30.6 pg Mean Corpuscular Hemoglobin Concent 34.8 g/dl Platelet Count 187 K/uL Mean Platelet Volume 9.6 fL Neutrophils (%) (Auto) 43.0 % Lymphocytes (%) (Auto) 41.7 % Monocytes (%) (Auto) 10.5 % Eosinophils (%) (Auto) 3.7 % Basophils (%) (Auto) 0.9 % Neutrophils # (Auto) 2.45 K/uL Lymphocytes # (Auto) 2.37 K/uL Monocytes # (Auto) 0.60 K/uL Eosinophils # (Auto) 0.21 K/uL Basophils # (Auto) 0.05 K/uL RDW Standard Deviation 41.0 fL RDW Coefficient of Variation 12.8 % Immature Granulocyte % (Auto) 0.2 % Immature Granulocyte # (Auto) 0.01 K/uL Sodium Level 143 mmol/L Potassium Level 4.0 mmol/L Chloride Level 111 mmol/L Carbon Dioxide Level 28 mmol/L Anion Gap 4.0 mmol/L Blood Urea Nitrogen 13 mg/dl Creatinine 0.79 mg/dl Est Creatinine Clear Calc Drug Dose 55.7 ml/min Estimated GFR () 84.9 Estimated GFR (Non- 73.2 BUN/Creatinine Ratio 16.1 Random Glucose 86 mg/dl Estimated Average Glucose 100 mg/dl Hemoglobin A1c 5.1 % Calcium Level 8.8 mg/dl Triglycerides Level 149 mg/dl Cholesterol Level 211 mg/dl HDL Cholesterol 50 mg/dl LDL Cholesterol, Calculated 131 mg/dl VLDL Cholesterol, Calculated 30 mg/dl Cholesterol/HDL Ratio 4.2 Thyroid Stimulating Hormone (TSH) 1.070 uIu/ml Assessment & Plan Transient global amnesia episode - Etiology unknown - CT head was unremarkable - MRA of neck showed no significant stenosis, aneurysm, or focal vessel occlusion. - MRI of head showed no acute intracranial abnormality - EEG showed no evidence for potentially epileptogenic activity. - No recent medications adding - Normal neuro exam today - Neuro consulted- waiting for input - No arrhythmia seen on telemonitor - lyme ab negative - B12, TSH and folate are wnl - Was starting on aspirin and statin - PT/OT - Back to baseline as per family - case discussed with Dr. Armas neurology - stable from neuro standpoint - Follow up appt with neuro in 4 weeks - Resolved Echo done * Normal LV chamber size with mild concentric LVH. * Hyperdynamic LV systolic function, EF >70%. * No segmental left ventricular wall motion abnormalities are noted. * Grade I diastolic dysfunction. * No significant valvular pathology. * The interatrial septum is intact with no evidence for an atrial septal defect. * Injection of contrast documented no interatrial shunt. ELEVATED BP BP has been fluctuates Will schedule a close follow up with pcp to check BP Advised pt to follow a low salt diet DVT PX on lovenox subq CODE STATUS FULL CODE Disposition Will discharge home once stable from neuro standpoint Follow up appointment with PCP Dr. Pearson on 06/10 a 10:45 am Consultants: Neurology Current Inpatient Medications: Current Inpatient Medications Medications (Trade) Dose Ordered Sig/Omayra Route Start Time Stop Time Status Last Admin Dose Admin Enoxaparin Sodium (Lovenox Inj) 30 mg HS SC 06/07/17 21:00 07/07/17 20:59 06/07/17 21:29 30 MG Acetaminophen (Tylenol Tab) 650 mg Q4H PRN PO 06/07/17 17:00 07/07/17 16:59 Ondansetron HCl (Zofran Inj) 4 mg Q6H PRN IV 06/07/17 17:00 07/07/17 16:59 Aspirin (Ecotrin Tab) 81 mg QAM PO 06/08/17 09:00 07/08/17 08:59 06/08/17 08:39 81 MG Polyethylene (Miralax Powder Packet) 17 gm DAILY PRN PO 06/07/17 18:00 07/07/17 17:59 Atorvastatin Calcium (Lipitor Tab) 10 mg QAM PO 06/08/17 09:00 07/08/17 08:59 06/08/17 08:39 10 MG Miscellaneous Information (Pharmacist Discharge Med Rec Consult) 1 ea UD PRN N/A 06/07/17 17:15 07/07/17 17:14 Miscellaneous (Iv Fluids Completed) 1 ea PRN PRN N/A 06/07/17 19:45 06/07/18 19:44 Gadobutrol (Gadavist) 7 mmol UD PRN IV 06/07/17 21:30 06/11/17 21:29
[2017-06-08] MEDS ORDERED: LPT10 PO (19:32)
[2017-06-08] MEDS ORDERED: ASPEC81 PO (19:32)
--- NOTE | 2017-06-08 19:41 | Discharge Instructions ---
Discharge Instructions Date of Service Jun 08, 2017. Admission Reason for Admission: Altered Mental State, Transient Global Amnesia Discharge Discharge Diagnosis / Problem: Transient Global Amnesia, Elevated BP Discharge Goals Goal(s): Decrease discomfort, Improve function, Increase independence, Improve disease control Activity Recommendations Activity Limitations: resume your previous activity (as tolerated) . Instructions / Follow-Up Instructions / Follow-Up Follow up with Dr. Pearson on 06/10 @ 10:45 am Follow up with neurology dr. Ojeda between 3 to 4 weeks (Please call to schedule appointment) Follow a low salt diet and low cholesterol diet Monitor Blood pressure and if elevated your physician will start you on blood pressure medicine starting on cholesterol medicine, please check liver enzymes between 1 to 2 weeks Current Hospital Diet Patient's current hospital diet: AHA Diet (Heart Healthy) Discharge Diet Recommended Diet: AHA Diet (Heart Healthy), Low Sodium Diet (2gm Na) Pending Studies Studies pending at discharge: no Laboratory Results Hemoglobin A1c Test 06/08/17 07:23 Range/Units Estimated Average Glucose 100 mg/dl Hemoglobin A1c 5.1 4.5-5.6 % Lipid Panel Test 06/08/17 07:23 Range/Units Triglycerides Level 149 0-150 mg/dl Cholesterol Level 211 H 0-200 mg/dl HDL Cholesterol 50 mg/dl Cholesterol/HDL Ratio 4.2 LDL Cholesterol, Calculated 131 mg/dl Medical Emergencies . Who to Call and When: Medical Emergencies: If at any time you feel your situation is an emergency, please call 911 immediately. . Non-Emergent Contact Non-Emergency issues call your: Primary Care Provider Call Non-Emergent contact if: you have any medication questions . . "Provider Documentation" section prepared by Efrain Weston. . VTE Core Measure Inpt VTE Proph given/why not?: Enoxaparin (Lovenox)SQ
[2017-06-08 19:58] VITALS: BP 149/79; PULSE 60; TEMP 36.5; O2SAT 94
[2017-06-08 20:02] VITALS: BP 142/84; PULSE 62; TEMP 36.5; O2SAT 96
--- NOTE | 2017-06-12 17:03 | Discharge Summary ---
Discharge Summary Date of Service Jun 12, 2017. Discharge Summary Admission Date: Jun 07, 2017 at 17:03 Discharge Date: Jun 08, 2017 Discharge Disposition: Home Principal Diagnosis: Transient Global Amnesia Secondary Diagnoses/Problems: Elevated BP Procedures: CT HEAD WITHOUT CONTRAST (CT) CLINICAL HISTORY: episode of confusion MEMORY LOSS COMPARISON STUDY: No previous studies for comparison. TECHNIQUE: Axial CT of the brain is performed from the vertex to the skull base. IV contrast was not administered for this examination. A dose lowering technique was utilized adhering to the principles of ALARA. CT DOSE: 638.56 mGycm FINDINGS: No intra or extra-axial mass lesions are visualized. There is no CT evidence of acute cortical infarction. There is no evidence of midline shift. There is no acute hemorrhage. No calvarial fractures are visualized. There are minor white matter hypodensities likely on a small vessel basis. There is no evidence of pathologic ventricular dilatation. There is no evidence of acute sinusitis IMPRESSION: No acute intracranial findings. Electronically signed by: Domenic Gonzalez M.D. 06/07/2017 2:27 PM Dictated Date/Time: 06/07/2017 2:26 PM CHEST ONE VIEW PORTABLE CLINICAL HISTORY: Atypical chest pain COMPARISON STUDY: No previous studies for comparison. FINDINGS: There is a contour deformity of the left hemidiaphragm likely representing a focal eventration. The heart is normal in size. There is no failure. There is no focal pulmonary consolidation. There are no pleural effusions.[ IMPRESSION: Contour deformity of the left hemidiaphragm, likely secondary to a focal eventration. Otherwise negative AP portable chest Electronically signed by: Domenic Gonzalez M.D. 06/07/2017 2:44 PM Dictated Date/Time: 06/07/2017 2:43 PM MRA NECK COMBO CLINICAL HISTORY: 76 years-old Female presenting with stroke. TECHNIQUE: MR angiography of the neck was performed before and after the administration of intravenous contrast. 3-D volumetric and/or maximum intensity projection (MIP) images were subsequently reconstructed for review. IV contrast: 7 mL of Gadavist. All measurements were calculated based on NASCET-like criteria. COMPARISON: None. FINDINGS: Bilateral common carotid and internal carotid arteries patent. Tortuosity of the internal carotid arteries may suggest chronic hypertension. Codominant vertebral arteries, which are patent. No significant stenosis, aneurysm, or vessel occlusion. Origins of the cervical vessels patent. Three-vessel aortic arch. Limited intracranial vessel evaluation is within normal limits. IMPRESSION: 1. No significant stenosis, aneurysm, or focal vessel occlusion. Electronically signed by: Isacc Martinez M.D. 06/07/2017 9:29 PM Dictated Date/Time: 06/07/2017 9:25 PM BRAIN WITHOUT CONTRAST CLINICAL HISTORY: 76 years-old Female presenting with Stroke. TECHNIQUE: Multisequence, multiplanar MR imaging of the brain was performed without the use of intravenous contrast. IV contrast: None. COMPARISON: CT head from 06/07/2017. FINDINGS: Ventricular and sulcal enlargement with proportional parenchymal volume loss, likely age-related. Periventricular and subcortical white matter T2/FLAIR hyperintensity, nonspecific but likely chronic small vessel ischemic change. No mass effect or midline shift. No hemorrhage or acute territorial infarct. No extra-axial fluid collection. T2 skull base flow voids preserved. Bilateral [place] lenses are not present. Paranasal sinuses and mastoid air cells clear. Calvarium intact. IMPRESSION: No acute intracranial abnormality. Electronically signed by: Isacc Martinez M.D. 06/07/2017 9:25 PM Dictated Date/Time: 06/07/2017 9:22 PM [~ rep ct add3]] ORBITS FOR MRI CLINICAL HISTORY: 76 years-old Female presenting with MRI CLEARANCE, DAUGHTER DID SCREENING. TECHNIQUE: 3 views of the orbits were obtained. COMPARISON: CT head from 06/07/2017. FINDINGS: No radiopaque or metallic object projects over the orbits. Paranasal sinuses grossly clear. Bony nasal septum midline. Visualized portion of the calvarium grossly normal. IMPRESSION: No intraorbital metallic foreign body to preclude MRI. Electronically signed by: Isacc Martienz M.D. 06/07/2017 7:28 PM Dictated Date/Time: 06/07/2017 7:26 PM Interpretation Summary * Name: FABIAN SANTIAGO Study Date: 06/08/2017 07:37 AM BP: 129/84 mmHg * Patient Location: [facility] HR: 63 * : 1940 (M/d/yyyy) Gender: Female Height: 60 in * Age: 76 yrs Ethnicity: [place] Weight: 167 lb * Ordering Physician: Araseli Waller * Referring Physician: Self, Referred * Performed By: Jennie Snider RDCS * * Reason For Study: Cerebral ischemia/embolus * BSA: 1.7 m2 * -- Conclusions -- * Normal LV chamber size with mild concentric LVH. * Hyperdynamic LV systolic function, EF >70%. * No segmental left ventricular wall motion abnormalities are noted. * Grade I diastolic dysfunction. * No significant valvular pathology. * The interatrial septum is intact with no evidence for an atrial septal defect. * Injection of contrast documented no interatrial shunt. Procedure Details * A complete two-dimensional transthoracic echocardiogram was performed (2D, M- mode, Doppler and color flow Doppler). * A saline contrast injection was performed to assess for cardiac shunting. * The injection was performed through an intravenous line in the right arm. * The attending nurse who injected the saline contrast was Francesca Antoine RN. * A total of 20 cc of agitated saline was given. Left Ventricle * The left ventricle is normal in size. * There is no thrombus. * There is mild concentric left ventricular hypertrophy. * Ejection Fraction = >70 %. * The left ventricle is hyperdynamic. * No segmental left ventricular wall motion abnormalities are noted. * The left ventricular wall motion is normal. Right Ventricle * The right ventricular cavity size is normal (basal dimension <4.2 cm in right ventricular apical 4-chamber view). * The right ventricular systolic function is normal as assessed by tricuspid annular plane systolic excursion (TAPSE) (normal >1.5 cm). Atria * The left atrial size is normal. * Right atrial size is normal. * The interatrial septum is intact with no evidence for an atrial septal defect. * Injection of contrast documented no interatrial shunt. Mitral Valve * The mitral valve is normal in structure and function. Tricuspid Valve * The tricuspid valve is normal in structure and function. Aortic Valve * The aortic valve is normal in structure and function. Pulmonic Valve * The pulmonary valve is not well seen, but the Doppler examination is normal without significant regurgitation or stenosis. Great Vessels * The aortic root and proximal ascending aorta are normal sized. Pericardium/Pleural * There is no pericardial effusion. Left Ventricular Diastolic Function * Grade I diastolic dysfunction, (abnormal relaxation pattern). EEG CLINICAL DIAGNOSIS: Transient amnesia, question seizure disorder. ELECTROENCEPHALOGRAM DIAGNOSIS: Essentially normal during wakefulness. DESCRIPTION OF TRACING: This EEG was done as a bedside recording and is of good technical quality with a few muscle movement artifacts occurring episodically and captured on simultaneous video analysis of patient movement and behavior. Photic stimulation was performed. Hyperventilation was not. Drowsiness and light sleep were not recorded. During wakefulness, there is evidence for normal appearing background rhythm in the alpha range of up to 10 Hz of maximum frequency and 30 microvolts of maximum amplitude. This is maximum posterior head regions and bilaterally symmetrical. Polymorphic mid frequency theta activity is seen over all head regions without clear focal or regional predominance. Anterior head region maximum bilaterally symmetrical low voltage fast activity in the beta range is present. Photic stimulation provoked some modest driving response without a photomyogenic or photoparoxysmal component. At no time during the waking tracing is there evidence for potentially epileptogenic activity in the form of polyspike or spike wave bursts, focal sharp waves or focal spikes. INTERPRETATION: This EEG is essentially normal during wakefulness without evidence for focal or generalized encephalopathy and without evidence for potentially epileptogenic activity. Dictated: 06/08/17 1435 Transcribed: 06/08/17 1553 <Electronically signed by Misael Key M.D.> Signed: 06/09/17 0631 ES Misael Key M.D. Consultations: Neurology Medication Reconciliation New Medications: Aspirin (Aspirin EC Low Dose) 81 Mg Ectab 81 MG PO QAM for 30 Days Atorvastatin (Atorvastatin Calcium) 10 Mg Tab 10 MG PO QAM for 30 Days, #30 TAB Admission Information HPI (per Admitting provider): Patient is a 76 yo female who was brought to the ER today by her son who noticed the patient was having difficulty remembering anything from today or yesterday. Her daughter who lives with the patient was at the bedside and states she was not present at home this morning, however she was told that the patient was very confused this morning and could not remember things. Last known well time was 12:30 PM. Per the patient's son, she was normal this AM, answering questions and talking. She then went to her car and drove somewhere with her son and following behind, but when they reached the destination the patient sat in her parked car and didn't come out for a while. When she went inside she was talking with her and her son and was saying things that did not make sense and her became angry and was frustrated with her, so the son decided to bring her to the hospital. Her daughter says she is still having confusion and cannot remember things about the last few days, but denies any other changes. The patient reports having occasional dizzy episodes that occur randomly, once while in bed and once while grocery shopping. She had a mechanical fall about 2 weeks ago but denies hitting her head. She otherwise denies any changes to her health, any complaints , any medication ingestion, and denies any exposure to insect bites or unusual animals other than her own. Physical Exam (per Admitting): General Appearance: WD/WN, no apparent distress Head: normocephalic, atraumatic Eyes: PERRL, EOMI, sclerae normal ENT: hearing grossly normal, pharynx normal Neck: supple, no JVD, no carotid bruits, trachea midline Respiratory/Chest: chest non-tender, lungs clear, normal breath sounds, no respiratory distress Cardiovascular: regular rate, rhythm, no edema, no gallop, no JVD, no murmur Abdomen/GI: normal bowel sounds, non tender, soft, no organomegaly Back: normal range of motion Extremities/Musculoskelatal: no calf tenderness, normal capillary refill, normal range of motion, + pedal edema Neurologic/Psych: no motor/sensory deficits, alert, normal mood/affect, oriented x 3 Skin: normal color, warm/dry, no rash Hospital Course Transient global amnesia episode - Etiology unknown - CT head was unremarkable - MRA of neck showed no significant stenosis, aneurysm, or focal vessel occlusion. - MRI of head showed no acute intracranial abnormality - EEG showed no evidence for potentially epileptogenic activity. - No recent medications adding - Normal neuro exam today - Neuro consulted- waiting for input - No arrhythmia seen on telemonitor - lyme ab negative - B12, TSH and folate are wnl - Was starting on aspirin and statin - PT/OT - Back to baseline as per family - case discussed with Dr. Armas neurology - stable from neuro standpoint - Follow up appt with neuro in 4 weeks - Resolved Echo done * Normal LV chamber size with mild concentric LVH. * Hyperdynamic LV systolic function, EF >70%. * No segmental left ventricular wall motion abnormalities are noted. * Grade I diastolic dysfunction. * No significant valvular pathology. * The interatrial septum is intact with no evidence for an atrial septal defect. * Injection of contrast documented no interatrial shunt. ELEVATED BP BP has been fluctuates Will schedule a close follow up with pcp to check BP Advised pt to follow a low salt diet DVT PX on lovenox subq CODE STATUS FULL CODE Disposition Will discharge home once stable from neuro standpoint Follow up appointment with PCP Dr. Pearson on 06/10 a 10:45 am Total time spent on discharge = 35 minutes This includes examination of the patient, discharge planning, medication reconciliation, and communication with other providers. Discharge Instructions Discharge Instructions Date of Service Jun 08, 2017. Admission Reason for Admission: Altered Mental State, Transient Global Amnesia Discharge Discharge Diagnosis / Problem: Transient Global Amnesia, Elevated BP Discharge Goals Goal(s): Decrease discomfort, Improve function, Increase independence, Improve disease control Activity Recommendations Activity Limitations: resume your previous activity (as tolerated) . Instructions / Follow-Up Instructions / Follow-Up Follow up with Dr. Pearson on 06/10 @ 10:45 am Follow up with neurology dr. Ojeda between 3 to 4 weeks (Please call to schedule appointment) Follow a low salt diet and low cholesterol diet Monitor Blood pressure and if elevated your physician will start you on blood pressure medicine starting on cholesterol medicine, please check liver enzymes between 1 to 2 weeks Current Hospital Diet Patient's current hospital diet: AHA Diet (Heart Healthy) Discharge Diet Recommended Diet: AHA Diet (Heart Healthy), Low Sodium Diet (2gm Na) Pending Studies Studies pending at discharge: no Laboratory Results Hemoglobin A1c Test 06/08/17 07:23 Range/Units Estimated Average Glucose 100 mg/dl Hemoglobin A1c 5.1 4.5-5.6 % Lipid Panel Test 06/08/17 07:23 Range/Units Triglycerides Level 149 0-150 mg/dl Cholesterol Level 211 H 0-200 mg/dl HDL Cholesterol 50 mg/dl Cholesterol/HDL Ratio 4.2 LDL Cholesterol, Calculated 131 mg/dl Medical Emergencies . Who to Call and When: Medical Emergencies: If at any time you feel your situation is an emergency, please call 911 immediately. . Non-Emergent Contact Non-Emergency issues call your: Primary Care Provider Call Non-Emergent contact if: you have any medication questions . . "Provider Documentation" section prepared by Efrain Weston. . VTE Core Measure Inpt VTE Proph given/why not?: Enoxaparin (Lovenox)SQ Additional Copies To Misael Pearson III, M.D.
--- NOTE | 2017-06-16 07:13 | CODING QUERY MEDICAL NECESSITY ---
SUPPORTING DIAGNOSIS NEEDED A supporting diagnosis is required for the test/procedure performed on this patient in order for us to be reimbursed by the patient's insurance. Please provide a supporting diagnosis for the following test/procedure listed below next to the test name along with your signature. *If there is no additional diagnosis for this patient that would support the following test/procedure please document that below next to the test/procedure. Test(s)/Procedure(s) that require a supporting diagnosis: * HEMOGLOBIN A1C DIAGNOSIS: Provider Signature: Date: Thank you Merlyn Simmons [employer] Once completed, please kindly fax back to [phone] For questions please call [phone]
--- NOTE | 2017-07-08 07:59 | EDITING REQUIRED CODING QUERY ---
SUPPORTING DIAGNOSIS NEEDED A supporting diagnosis is required for the test/procedure performed on this patient in order for us to be reimbursed by the patient's insurance. Please provide a supporting diagnosis for the following test/procedure listed below next to the test name along with your signature. *If there is no additional diagnosis for this patient that would support the following test/procedure please document that below next to the test/procedure. Test(s)/Procedure(s) that require a supporting diagnosis: * HEMOGLOBIN A1C DIAGNOSIS: Provider Signature: Date: Thank you Merlyn Simmons [employer] Once completed, please kindly fax back to [phone] For questions please call [phone]
== END 2017-06-08 20:20 | disposition home or self-care (01) ==
LOC: C.EDB 13:47 → C.MED 17:03 → ENRESERV 17:12
PROVIDERS: ADMIT Internal Medicine; ATTEND Internal Medicine
DX: G45.4 Transient global amnesia (principal); R03.0 Elevated blood-pressure reading, without diagnosis of hypertension; Z90.710 Acquired absence of both cervix and uterus; Z90.49 Acquired absence of other specified parts of digestive tract; Z83.3 Family history of diabetes mellitus; Z83.6 Family history of other diseases of the respiratory system; Z82.49 Family history of ischemic heart disease and other diseases of the circulatory system

== ENCOUNTER 2021-11-16 14:37 | Inpatient (IN) ==
[2021-11-16 17:12] LABS: Albumin Level 3.8 gm/dl (3.4-5.0); BUN Creatinine Ratio 16.9 (10-20); Calcium 9.6 mg/dl (8.5-10.1); Creatinine Clr Calc Pharmacy 49.7 ml/min; Est GFR (African American) 80.7 ml/min; Est GFR (Non-African American) 69.6 ml/min; Potassium 3.9 mmol/L (3.5-5.1)
[2021-11-16 17:15] LABS: Bilirubin,Total 0.2 mg/dl (0.2-1); Total Protein 7.8 gm/dl (6.4-8.2)
[2021-11-16 17:17] LABS: ALC (manual) 2.55 K/uL (1.2-3.4); ANC (manual) 4.08 K/uL (1.4-6.5); Eosinophils # (manual) 0.26 K/uL (0-0.5); Eosinophils % (manual) 3.5 %; Hematocrit (blood only) 42.4 % (37-47); Hemoglobin 14.5 g/dL (12.0-16.0); Lymphocytes # (manual) 1.21 K/uL (1.2-3.4); Lymphocytes % (manual) 16.5 %; Mean Corpuscular Hemoglobin 30.1 pg (25-34); Mean Corpuscular Hgb Conc 34.2 g/dL (32-36); Mean Corpuscular Volume 88.1 fL (80-100); Monocytes # (manual) 0.45 K/uL (0.11-0.59); Monocytes % (manual) 6.1 %; Neutrophils # (manual) 4.08 K/uL (1.4-6.5); Neutrophils % (manual) 55.6 %; Platelet Count 305 K/uL (130-400); Platelet Estimate Normal (Normal); RBC Morphology Unremarkable; RDW Coefficient of Variation 12.5 % (11.5-14.5); RDW Standard Deviation 40.1 fL (36.4-46.3); Reactive Lymphocytes # (manual) 1.34 K/uL; Reactive Lymphocytes % (manual) 18.3 %; Red Blood Count 4.81 M/uL (4.2-5.4); White Blood Count 7.34 K/uL (4.8-10.8)
--- NOTE | 2021-11-16 20:43 | Emergency Department Note ---
Impression & Plan TIA (transient ischemic attack), HTN (hypertension) ED Provider Note NAME: FABIAN SANTIAGO AGE: 81 SEX: F : 1940 ARRIVES VIA: Walk-In INFORMANT: Patient ED PROVIDER(S): Chaz Yang DO CHIEF COMPLAINT: Left-sided weakness HPI: Patient is an 81-year-old female with past medical history of shingles and appendectomy the presents the ER for headache this morning. Followed by left- sided arm and leg weakness. She notes that she she lowered herself to the gr ound as she noted she could not stand on her left leg. She was having trouble using her left arm. This lasted for about an hour. Occurred around 11. Her headache has now resolved. She denies any headache or change in vision. No chest pain or shortness of breath. No nausea vomiting or diarrhea. She denies any numbness with the symptoms although she cannot be certain. Denies any dysuria urgency or frequency. She did not hit her head. ROS: See above HPI for pertinent positives & negatives. A total of 10 systems reviewed and were otherwise negative. PAST MEDICAL HISTORY:See Below PAST SURGICAL HISTORY:See Below FAMILY HISTORY:See Below SOCIAL HISTORY:See Below HOME MEDICATIONS:See Below ALLERGIES:See Below VITALS:See Below PHYSICAL EXAMINATION: GENERAL: Sitting up in bed, alert, well appearing, well nourished, no distress, non-toxic EYE EXAM: normal conjunctiva. PERRL and EOM's intact. OROPHARYNX: no exudate, no erythema, lips, buccal mucosa, and tongue normal and mucous membranes are moist NECK: supple, no nuchal rigidity, no adenopathy, non-tender LUNGS: Clear to auscultation. Normal chest wall mechanics HEART: no murmurs, S1 normal and S2 normal ABDOMEN: abdomen soft, non-tender, normo-active bowel sounds, no masses, no rebound or guarding. UPPER EXTREMITIES: upper extremities are grossly normal. LOWER EXTREMITIES: No pitting edema. NEURO EXAM: Normal sensorium, cranial nerves II-XII intact, normal speech, no weakness of arms, no weakness of legs. No drift. Finger to nose intact. Gross sensation intact. MEDICAL DECISION MAKING: Patient is an 81-year-old female who presents ER for left-sided deficit which resolved lasting about an hour today. She completed neurologically intact. IV was established blood was obtained. Labs show no significant leukocytosis or anemia. BMP along with LFTs bilirubin was unremarkable. Covid was negative. CT angios the head and neck were negative. Patient was updated bedside. She was given aspirin fluids. She was discussed with the hospitalist admitted for further work-up of her TIA. Patient was hypertensive and we allow for permissive hypertensive with systolics of 170s to 200. Triage Nursing notes reviewed. Limited review of prior medical records performed Vital Signs: reviewed and remarkable for HTN Differential diagnosis: Differential Diagnosis includes but is not limited to ischemic Stroke, hemorrhagic stroke, bells palsy, mass, neoplasm, migraine headache, seizure, subarachnoid hemorrhage, TIA, and transient global amnesia. ER treatment provided: See below Diagnostics interpreted by me: ECG: Sinus rhythm rate 61 Normal axis No PVCs QTC 410 Cardiac Monitoring: An order was placed for continuous cardiac monitoring. The monitor shows a rate of 68 with sinus rhythm. Laboratory studies: As stated above and show below. Imaging studies: CT angios of the head and neck were negative Consultation(s): Chest with hospitalist for further evaluation Procedures: none Critical Care: None Past Med/Surg History Social History Smoking Status: Never smoker Feels Safe at Home: Yes Allergies Allergies Allergy/AdvReac Type Severity Reaction Status Date / Time naproxen Allergy Intermediate itch Verified 11/16/21 20:38 codeine Allergy Unknown unknown Verified 11/16/21 20:38 pseudoephedrine AdvReac Intermediate saw black Verified 11/16/21 20:38 spots Home Meds Home Medications Medication Instructions Recorded Confirmed aspirin 81 mg tablet 405 mg PO .TODAY 11/16/21 11/16/21 metoprolol succinate 25 mg 25 mg PO DAILY 11/16/21 11/16/21 tablet,extended release 24 hr Results & Data (ED) Vital Signs Vital Signs - 24 hr 11/16/21 14:46 11/16/21 20:17 11/16/21 21:00 Temperature 36.6 C Temperature Source Temporal Artery Scan Pulse Rate 65 Pulse Rate [Right Radial] 66 66 Pulse Rhythm [Right Radial] Regular Pulse Strength [Right Radial] Normal Respiratory Rate 18 16 16 Respiratory Effort / Characteristics Non-Labored Spontaneous Non-Labored Spontaneous Respiratory Depth Normal Normal Respiratory Pattern Blood Pressure 184/91 H Blood Pressure [Right Arm] 192/116 H 201/92 H Blood Pressure Mean 122 Blood Pressure Mean [Right Arm] 141 128 Blood Pressure Position [Right Arm] Lying Pulse Oximetry 98 99 98 Oxygen Delivery Method Room Air Room Air Room Air Sepsis Recent Fever Within 48 Hours No Sepsis New/Unexplained Change in Mental Status N/A Sepsis Action Taken by Nursing No Action Required 11/16/21 22:37 Temperature Temperature Source Pulse Rate Pulse Rate [Right Radial] 65 Pulse Rhythm [Right Radial] Regular Pulse Strength [Right Radial] Normal Respiratory Rate 18 Respiratory Effort / Characteristics Non-Labored Spontaneous Respiratory Depth Normal Respiratory Pattern Regular Blood Pressure Blood Pressure [Right Arm] 202/94 H Blood Pressure Mean Blood Pressure Mean [Right Arm] 130 Blood Pressure Position [Right Arm] Lying Pulse Oximetry 100 Oxygen Delivery Method Room Air Sepsis Recent Fever Within 48 Hours Sepsis New/Unexplained Change in Mental Status Sepsis Action Taken by Nursing Laboratory Data Result diagrams: 11/16/21 16:38 11/16/21 16:38 Lab Results 11/16/21 11/16/21 11/16/21 Range/Units 16:38 16:38 21:04 WBC 7.34 (4.8-10.8) K/uL RBC 4.81 (4.2-5.4) M/uL Hgb 14.5 (12.0-16.0) g/dL Hct 42.4 (37-47) % MCV 88.1 (80-100) fL MCH 30.1 (25-34) pg MCHC 34.2 (32-36) g/dL RDW Std Deviation 40.1 (36.4-46.3) fL RDW Coeff of Francine 12.5 (11.5-14.5) % Plt Count 305 (130-400) K/uL MPV 10.0 (7.4-10.4) fL Neutrophils % (Manual) 55.6 % Lymphocytes % (Manual) 16.5 % Reactive Lymphs % (Man) 18.3 % Monocytes % (Manual) 6.1 % Eosinophils % (Manual) 3.5 % Neutrophils # (Manual) 4.08 (1.4-6.5) K/uL Total Absolute Neuts 4.08 (1.4-6.5) K/uL Lymphocytes # (Manual) 1.21 (1.2-3.4) K/uL Reactive Lymphs # 1.34 K/uL Total Abs Lymphocytes 2.55 (1.2-3.4) K/uL Monocytes # (Manual) 0.45 (0.11-0.59) K/uL Eosinophils # (Manual) 0.26 (0-0.5) K/uL Platelet Estimate Normal (Normal) RBC Morphology Unremarkable Sodium 138 (136-145) mmol/L Potassium 3.9 (3.5-5.1) mmol/L Chloride 107 (98-107) mmol/L Carbon Dioxide 28 (21-32) mmol/L Anion Gap 3.0 (3-11) BUN 13 (7-18) mg/dl Creatinine 0.80 (0.6-1.2) mg/dl Est Cr Clr Drug Dosing 49.7 ml/min Est GFR ( Amer) 80.7 ml/min Est GFR (Non-Af Amer) 69.6 ml/min BUN/Creatinine Ratio 16.9 (10-20) Glucose 83 (70-99) mg/dl Calcium 9.6 (8.5-10.1) mg/dl Total Bilirubin 0.2 (0.2-1) mg/dl AST 14 L (15-37) U/L ALT 22 (12-78) Alkaline Phosphatase 77 (45-117) U/L Total Protein 7.8 (6.4-8.2) gm/dl Albumin 3.8 (3.4-5.0) gm/dl Globulin 4.0 (2.5-4.0) gm/dl Albumin/Globulin Ratio 1.0 (0.9-2) SARS-CoV-2, RNA, NAAT NEGATIVE (NEGATIVE) Administered Medications Discontinued Medications Aspirin (Aspirin Chew 324 Mg) 324 mg PO NOW STA Stop: 11/16/21 22:04 Last Admin: 11/16/21 22:38 Dose: 324 mg Documented by: [id number] Ioversol (Optiray 320 125ml) 117 ml IV ONCE ONE Stop: 11/16/21 21:19 Last Admin: 11/16/21 21:27 Dose: 117 ml Documented by: [id number] Imaging Data Radiologist's Impression: Head CTA 11/16/21 20:40 CT angio head wo/w CLINICAL HISTORY: l sided deficit which is resolved COMPARISON STUDY: 06/07/2017 CT DOSE: 1505.49 mGycm TECHNIQUE: CT Angio of the brain was performed.followed by image post processing with coronal, and sagittal MIP reformats. Contrast Volume: Optiray 320, 117 ml FINDINGS: Vascular findings: There is normal enhancement within the internal carotid arteries bilaterally. On the left side, there is normal enhancement noted within the anterior, middle and posterior cerebral arteries. 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 The distal branches of the right TALAT fill via the anterior communicating artery. The right middle and posterior cerebral arteries are within normal limits. Nonvascular findings: There is homogeneous attenuation of the brain parenchyma bilaterally. There is no evidence for an acute infarct or cerebral edema. The ventricles are mildly dilated bilaterally. IMPRESSION: Essentially negative CT angiogram of the brain with contrast. ACT 112: Negative or not required by law. Electronically signed by: Ab Vasques M.D. 11/16/2021 9:41 PM Neck CTA 11/16/21 20:40 CT angio neck with con CLINICAL HISTORY: l sided resolved deficit COMPARISON STUDY: No previous studies for comparison. CT DOSE: TECHNIQUE: CT Angio of the neck was performed.followed by image post processing with coronal, and sagittal MIP reformats.. Stenosis assessment by NASCET criteria. Contrast Volume: Optiray 320, 117 ml FINDINGS: Vascular findings: Right common carotid artery: Patent without significant stenosis. Right internal carotid artery: Patent without significant stenosis. Right vertebral artery: Patent without significant stenosis. Left common carotid artery: Patent without significant stenosis. Left internal carotid artery: Patent without significant stenosis.There are minimal atherosclerotic plaque is seen at its origin. Left vertebral artery: Patent without significant stenosis. Nonvascular findings: The parotid and submandibular salivary glands appear normal. There is no enlarged cervical adenopathy noted. The airway appears patent. The thyroid gland appears within normal limits. The lung apices appear within normal limits. Impression: Essentially negative CT angiogram of the neck with contrast. ACT 112: Negative or not required by law. Electronically signed by: Ab Vasques M.D. 11/16/2021 9:49 PM Discharge Plan Visit Data Chief Complaint: Referred by Doctor Stated Complaint: DR PLUNKETT, THINKS PT HAD STROKE ED Provider: Chaz Yang Discharge Problem: TIA (transient ischemic attack), HTN (hypertension) Forms Stand Alone Forms: [facility] [employer] Prescriptions Prescriptions: No Action Low-Dose Aspirin 81 mg Tablet 405 mg PO .TODAY RF: 0 metoprolol succinate 25 mg tablet extended release 24 hr 25 mg PO DAILY RF: 0 Referrals Referrals: Misael Pearson MD [Primary Care Provider] - Discharge Problem: HTN (hypertension) Qualifiers: Hypertension type: unspecified Qualified Code(s): I10 - Essential (primary) hypertension
[2021-11-16] MEDS ORDERED: OPTIRAY 320 125ml IV ONE (21:18)
--- NOTE | 2021-11-16 21:43 | CT Scan Report ---
CT angio head wo/w CLINICAL HISTORY: l sided deficit which is resolved COMPARISON STUDY: 06/07/2017 CT DOSE: 1505.49 mGycm TECHNIQUE: CT Angio of the brain was performed.followed by image post processing with coronal, and s agittal MIP reformats. Contrast Volume: Optiray 320, 117 ml FINDINGS: Vascular findings: There is normal enhancement within the internal carotid arteries bilaterally. On the left side, there is normal enhancement noted within the anterior, middle and posterior cerebral a rteries. On the right side, there is evidence for congenital absence of the A1 segment of the right anterior c erebral artery. The distal branches of the right TALAT fill via the anterior communicating artery. The right middle and posterior cerebral arteries are within normal limits. Nonvascular findings: There is homogeneous attenuation of the brain parenchyma bilaterally. There is no evidence for an acute infarct or cerebral edema. The ventricles are mildly dilated bilaterally. IMPRESSION: Essentially negative CT angiogram of the brain with contrast. ACT 112: Negative or not required by law. Electronically signed by: Ab Vasques M.D. 11/16/2021 9:41 PM
--- NOTE | 2021-11-16 21:50 | CT Scan Report ---
CT angio neck with con CLINICAL HISTORY: l sided resolved deficit COMPARISON STUDY: No previous studies for comparison. CT DOSE: TECHNIQUE: CT Angio of the neck was performed.followed by image post processing with coronal, and sa gittal MIP reformats.. Stenosis assessment by NASCET criteria. Contrast Volume: Optiray 320, 117 ml FINDINGS: Vascular findings: Right common carotid artery: Patent without significant stenosis. Right internal carotid artery: Patent without significant stenosis. Right vertebral artery: Patent without significant stenosis. Left common carotid artery: Patent without significant stenosis. Left internal carotid artery: Patent without significant stenosis.There are minimal atherosclerotic p laque is seen at its origin. Left vertebral artery: Patent without significant stenosis. Nonvascular findings: The parotid and submandibular salivary glands appear normal. There is no enlarged cervical adenopathy noted. The airway appears patent. The thyroid gland appears within normal limits. The lung apices ap pear within normal limits. Impression: Essentially negative CT angiogram of the neck with contrast. ACT 112: Negative or not required by law. Electronically signed by: Ab Vasques M.D. 11/16/2021 9:49 PM
[2021-11-16] MEDS ORDERED: ASPIRIN CHEW 324 MG PO STA (22:03)
[2021-11-16] MEDS ORDERED: ACETAMINOPHEN 325 MG TAB PO PRN (23:19)
[2021-11-16] MEDS ORDERED: hydrALAZINE HCL 20 MG/ML VIAL IV PRN (23:19)
[2021-11-17] MEDS ORDERED: SODIUM CHLORIDE 0.9% 1000ML 1,000 ML IV SCH (00:27)
[2021-11-17] MEDS ORDERED: ONDANSETRON INJ 2 MG/ML 2 ML VIAL IV PRN (00:27)
[2021-11-17] MEDS ORDERED: PHARMACIST DISCHARGE MED REC CONSULT PRN (00:27)
[2021-11-17] MEDS ORDERED: NITROGLYCERIN SL 0.4 MG/TAB TAB SL PRN (00:27)
[2021-11-17 00:59] LABS: Appearance Urine Clear (Clear); Bacteria Urine Automated Negative (Negative); Bilirubin Urine Negative (Negative); Blood Urine Negative (Negative); Cast Urine Automated 0 /lpf (0-5); Color Urine Yellow; Epithelial Cell Urine Auto 0-5 /lpf (0-5); Glucose Urine UA Negative (Negative); Ketones Urine Negative (Negative); Leukocyte Esterase Urine Trace (Negative); Nitrite Urine Negative (Negative); Protein Urine Negative (Negative); RBC Urine Automated 0-4 /hpf (0-4); Specific Gravity Urine > 1.045 (1.000-1.030); Urobilinogen Urine Negative (Negative); pH Urine 7.5 (4.5-7.5)
[2021-11-17] MEDS ORDERED: GADOBUTROL 65ML VIAL IV ONE (01:46)
--- NOTE | 2021-11-17 02:33 | History and Physical Report ---
DATE OF ADMISSION: 11/16/2021. CHIEF COMPLAINT: Transient left-sided weakness. HISTORY OF PRESENT ILLNESS: This is an 81-year-old female with past medical history significant for sarcoidosis but currently not requiring any treatment, history of hypertension, carpal tunnel syndrome, who presents from home because of transient left-sided weakness. The patient says around 10:30 a.m., she was trying to pick some papers from the table, when she suddenly felt her left upper extremity was not working. Then she tried to rotate, but her left leg also was weak, gave up, and she slowly slid down to the floor. At that time, she had a left-sided headache. She lives with her daughter and her , but she did not want to come to the hospital at that time. The symptoms lasted for about 40 minutes and got resolved. Now she is back to baseline. Currently, she has some mild headache. During the episode, she felt a funny feeling in the heart, like a kind of dizzy feeling of the head. Currently, no blurred visions, no earache, no runny nose, no sore throat, no cough, no fevers, no chest pain, no shortness of breath, no nausea, no vomiting, no abdominal pain. Normal bowel and bladder movements. Resting comfortably and hemodynamically stable. ALLERGIES: NAPROXEN, CODEINE, PSEUDOEPHEDRINE. PAST MEDICAL HISTORY: As mentioned above. PAST SURGICAL HISTORY: Biopsy of lymph node, colonoscopy, dilatation and curettage, appendectomy, cataracts, cholecystectomy, tonsillectomy and adenoidectomy. MEDICATIONS: The patient is on metoprolol succinate 25 mg p.o. daily. FAMILY HISTORY: Significant for mother has brain cancer, had heart disorder; paternal grandfather had cancer; sister has cancer, diabetes, heart disorder; daughter has inflammatory bowel disease, irritable bowel syndrome, and diabetes. SOCIAL HISTORY: . No smoking. Alcohol, rarely. No drug use. REVIEW OF SYSTEMS: As per HPI. Rest of review of systems is negative. PHYSICAL EXAMINATION: GENERAL: The patient is of moderate build, not in acute distress. VITAL SIGNS: Temperature 36.6, pulse 62, respiratory rate 18, blood pressure 181/84, oxygen 99% on room air. HEENT: Pupils equal, round, and reactive to light. Oral mucosa moist. NECK: No JVD. No neck masses. CARDIOVASCULAR: S1 and S2 heard. Regular rate and rhythm. No murmur, no gallop. RESPIRATORY SYSTEM: Normal AP diameter. No accessory muscle use. No wheezing, no crackles. ABDOMEN: Soft, bowel sounds present, nontender, no distention. CENTRAL NERVOUS SYSTEM: Alert and oriented. No facial droop. Tongue midline. Speech is clear. Power 5/5 in all extremities. Sensation is intact. Position sense intact. No pronator drift. Coordination of movements normal. EXTREMITIES: No edema, no erythema. LABORATORY DATA: WBC7.34, hemoglobin 14.5, hematocrit 42.4, platelets 305. Sodium 138, potassium 3.9, chloride 107, bicarbonate 28, BUN 13, creatinine 0.8, serum glucose 83, calcium 9.6, total bilirubin 0.2, AST 14, ALT 22, alkaline phosphatase 77. SARS-CoV-2 RNA negative. IMAGING DATA: Negative CT angiogram of the neck with contrast. CTA of the head negative. CT angiogram of the brain with contrast. EKG: Normal sinus rhythm at a rate of 61. Nonspecific T-wave abnormalities. ASSESSMENT AND PLAN: This 81-year-old female presents with cerebrovascular accident, transient ischemic attack kind of symptoms. 1. Cerebrovascular accident, transient ischemic attack: Left-sided weakness, lasted for about 40 minutes at 10:30 a.m. Currently, asymptomatic. Initial workup with CTA of the head and neck is unremarkable. Will do full stroke workup with MRI scan and echo. She was given aspirin in the ER. Will continue with aspirin daily. Also started on Lipitor. Follow lipid profile, HbA1c levels. Speech evaluation and PT/OT and neuro evaluation in the a.m. Monitor in the tele floor. 2. History of sarcoidosis, not requiring any treatment. 3. Hypertension: Currently blood pressure is running high. Will allow permissive blood pressure and continue her metoprolol succinate and placed on IV hydralazine p.r.n. for systolic blood pressure greater than 180 and monitor blood pressure in the hospital. 4. Dysphagia: The patient recently saw GI for dysphagia. There is a plan for EGD, but the patient is not considering it at this time. Will await speech evaluation. 5. Deep venous thrombosis prophylaxis: Sequential compression devices for now. DISPOSITION: Closely monitor in the tele floor. Level 1 full code. Expect to discharge home and follow with family doctor. Job ID: [id number] [facility]
[2021-11-17 06:40] LABS: Basophils # (auto) 0.05 K/uL (0-0.2); Basophils % (auto) 0.8 %; Eosinophils # (auto) 0.21 K/uL (0-0.5); Eosinophils % (auto) 3.2 %; Hematocrit (blood only) 37.5 % (37-47); Hemoglobin 12.7 g/dL (12.0-16.0); Immature Granulocytes # (auto) 0.01 K/uL (0.00-0.02); Immature Granulocytes % (auto) 0.2 %; Lymphocytes # (auto) 2.23 K/uL (1.2-3.4); Lymphocytes % (auto) 33.8 %; Mean Corpuscular Hemoglobin 29.8 pg (25-34); Mean Corpuscular Hgb Conc 33.9 g/dL (32-36); Mean Platelet Volume 9.2 fL (7.4-10.4); Monocytes # (auto) 0.76 K/uL (0.11-0.59); Monocytes % (auto) 11.5 %; Neutrophils # (auto) 3.33 K/uL (1.4-6.5); Neutrophils % (auto) 50.5 %; Platelet Count 240 K/uL (130-400); RDW Coefficient of Variation 12.6 % (11.5-14.5); RDW Standard Deviation 40.2 fL (36.4-46.3); Red Blood Count 4.26 M/uL (4.2-5.4); White Blood Count 6.59 K/uL (4.8-10.8)
[2021-11-17 07:18] LABS: BUN Creatinine Ratio 17.4 (10-20); Calcium 9.1 mg/dl (8.5-10.1); Creatinine Clr Calc Pharmacy 57.1 ml/min; Est GFR (African American) 95.8 ml/min; Est GFR (Non-African American) 82.6 ml/min; Potassium 3.6 mmol/L (3.5-5.1)
[2021-11-17 07:32] LABS: Estimated Average Glucose 103 mg/dl; Hemoglobin A1C 5.2 % (4.5-5.6)
--- NOTE | 2021-11-17 07:48 | Magnetic Resonance Report ---
MRI OF THE BRAIN WITHOUT AND WITH IV CONTRAST CLINICAL HISTORY: tia/cva. Left arm and leg weakness. Headache. COMPARISON STUDY: MRI of the brain June 07, 2017. Head CT and CTA of the head November 16, 2021. TECHNIQUE: Utilizing a 1.5 Patrizia magnet and dedicated coil, multiplanar, multiecho imaging of the br ain was performed pre and postcontrast administration. IV administration of 7 mL of Gadavist contras t was uneventful. FINDINGS: There are no foci of restricted diffusion to suggest acute infarct. No acute intracranial h emorrhage, midline shift or mass effect is present. Ventricular system is unremarkable. Basal cistern s are patent. There are no extra axial collections. Flow-voids for the major intracranial vessels are present. There is no intracranial mass or pathologic enhancement. White matter T2 hyperintense foci suggest small vessel disease. Orbits are unremarkable. There is no evidence for sinusitis. IMPRESSION: 1. No acute intracranial findings. 2. No intracranial mass or pathologic enhancement. ACT 112: Negative or not required by law. Electronically signed by: Parker Zuniga M.D. 11/17/2021 7:47 AM
[2021-11-17] MEDS ORDERED: INFLUENZA VACCINE HIGH DOSE PF 65+ 0.7 ML SYR IM ONE (08:00)
--- NOTE | 2021-11-17 08:08 | Electrocardiogram Report ---
Test Reason : Blood Pressure : / mmHG Vent. Rate : 061 BPM Atrial Rate : 061 BPM P-R Int : 150 ms QRS Dur : 082 ms QT Int : 408 ms P-R-T Axes : 063 059 046 degrees QTc Int : 410 ms Poor data quality, interpretation may be adversely affected Normal sinus rhythm Nonspecific T wave abnormality Anterior leads Abnormal ECG When compared with ECG of 07-JUN-2017 14:05, Nonspecific T wave abnormality now evident in Anterior leads Confirmed by Rocky Jenkins ([id number]) on 11/17/2021 8:07:46 AM Referred By: Misael Pearson Confirmed By:Rocky Jenkins
[2021-11-17] MEDS ORDERED: METOPROLOL SUCC 25MG EXT REL TAB PO SCH (09:00)
[2021-11-17] MEDS ORDERED: ASPIRIN 81 MG ECTAB PO SCH (09:00)
[2021-11-17] MEDS ORDERED: ATORVASTATIN 40 MG TAB PO SCH (09:00)
--- NOTE | 2021-11-17 10:49 | Neurology Consultation ---
Date of Consultation November 17, 2021 Assessment & Plan (1) TIA (transient ischemic attack): 1. MRI brain- no stroke 2. CTA head neck- no significant stenosis or narrowing 3. PT/OT for discharge needs 4. add aspirin 81 mg unless there is a contraindication 5. optimize HTN, HLD LDL <70 but consider patients age 6. TTE- no ASD 7. Recent Zio completed prior to admission follow with neurology in 4-6 weeks Alyse Figueroa PAC schedule (2) HTN (hypertension): 1. as above Supervising Physician Co-Signing Physician Notes Patient was seen and examined. I agree with Alyse Figueroa PA-C. A pleasant 81 year old woman with no prior history of stroke or TIA not on ASA admitted with transient left sided weakness. Symptoms resolved. No weakness noted on examine. No ataxia or facial droop. Will start ASA. Had recent Zio patch as outpatient will follow up results. Will follow up in clinic in December. History of Present Illness Reason for Consultation: cva/tia Requesting Physician: Leland Be MD Attending Physician: Leland Be MD History of Present Illness Dunia is an 81 year old female with PMH - sarcoidosis but currently not requirin g any treatment, HTN, carpal tunnel syndrome, who presented from home to [facility] 11/17/21 with transient left-sided weakness.She was trying to pick some papers from the table, when she suddenly felt her left upper extremity was not working.Her left leg also was weak, and she slowly slid down to the floor.She also had a left-sided headache. She lives with her daughter and her , but she did not want to come to the hospital at that time. The symptoms lasted for about 40 minutes. She is back to baseline with a mild headache. Along with the other symptoms she felt a funny feeling in the heart, like a kind of dizzy feeling of the head. she is back to her baseline today with just a mild headache. nothing like this has ever happened to her in the past. denies CP, SOB, abdominal pain, vision changes, N, V. Allergies Allergy/AdvReac Type Severity Reaction Status Date / Time naproxen Allergy Intermediate itch Verified 11/16/21 20:38 codeine Allergy Unknown unknown Verified 11/16/21 20:38 pseudoephedrine AdvReac Intermediate saw black Verified 11/16/21 20:38 spots Home Medications Medication Instructions Recorded Confirmed Type metoprolol succinate 25 mg 25 mg PO DAILY 11/16/21 11/16/21 History tablet,extended release 24 hr aspirin 81 mg tablet,delayed 81 mg PO DAILY #30 tab 11/17/21 Rx release atorvastatin 40 mg tablet 40 mg PO QAM #30 tab 11/17/21 Rx Patient History Social History Smoking Status: Never smoker Second Hand Exposure: No; Do You Dip or Chew Tobacco: No; Tobacco Cessation Education Requested by Patient: No Hx Alcohol Use: No Hx Substance Use: No Preferred Language: Nicaraguan Communication Ability: Effective Developmental Education Instructor Required: No Beliefs That Will Affect Care: None marital status: Current Living Situation: Family Current Living Situation Comment: with and daughter How many Children do You have: 3 Other Information That Helps Us Care for You: No Feels Safe at Home: Yes Safety Concerns: Feels Safe At This Time Assistive Devices: None Review of Systems Review of Systems: All systems reviewed & are unremarkable except as noted in HPI & below Physical Exam Physical Exam: Physical Exam: Constitutional: appearance nourished, healthy and normal Ears, Nose, Mouth and Throat: mucous membranes moist, no injection and skin normal, eyes normal Cardiovascular: normal S-1 and S-2 and regular rate and rhythm Respiratory: clear to auscultation (CTA) and no rales, rhonchi or wheeze Musculoskeletal: no peripheral edema and good distal pulses Skin: no stigmata of neurocutaneous disease noted and normal and intact Eyes: extraocular muscles intact (EOMI) and pupils equal, round and reactive to light (PERRL) NEUROLOGIC EXAMINATION: Mental status: Alert and interactive Oriented to full date and location Oriented to person Speech fluent with no evidence of aphasia Cranial Nerves smile eye brow raise symmetric Reflexes: Deep tendon reflexes were symmetrical and graded 2/5. down going toes Sensory: light and cool touch Coordination: finger to nose, heel to friedman, rapid hand movements Gait/Stance: Posture normal. Gait normal: with steady with steps, base, turning, and tandem gait. Motor: Negative for pronator drift of out stretched arms with eyes closed. 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 5/5 bilaterally hip flex plantar flex ext 5/5 Results & Data ([facility]) Vital Signs (Past 12 Hours) Vital Signs Temp Pulse Pulse Resp BP Pulse Ox 11/17/21 08:00 36.7 C 78 20 152/67 H 98 11/17/21 03:42 36.5 C 63 18 149/81 H 97 11/17/21 01:44 36.6 C 58 L 62 15 183/77 H 98 11/17/21 00:27 36.6 C 62 15 183/77 H 98 11/16/21 23:21 62 18 181/84 H 99 Laboratory Results Abnormal lab results 11/16/21 11/17/21 11/17/21 Range/Units 16:38 00:38 06:16 Jones # (Auto) 0.76 H (0.11-0.59) K/uL Chloride (98-107) mmol/L AST 14 L (15-37) U/L Ur Specific [place] > 1.045 H (1.000-1.030) Ur Leukocyte Esterase Trace H (Negative) 11/17/21 Range/Units 06:16 Jones # (Auto) (0.11-0.59) K/uL Chloride 108 H (98-107) mmol/L AST (15-37) U/L Ur Specific [place] (1.000-1.030) Ur Leukocyte Esterase (Negative) Diagnostic Findings CTA head-negative CT angiogram of the brain with contrast. CTA neck- negative CT angiogram of the neck with contrast. MRI brain-There are no foci of restricted diffusion to suggest acute infarct. No acute intracranial hemorrhage, midline shift or mass effect is present. Ventricular system is unremarkable. Basal cisterns are patent. There are no extra axial collections. Flow-voids for the major intracranial vessels are present. There is no intracranial mass or pathologic enhancement. White matter T2 hyperintense foci suggest small vessel disease. Orbits are unremarkable. There is no evidence for sinusitis. TTE- 55-60 EF, no ASD (1) HTN (hypertension) Hypertension type: unspecified Qualified Code(s): I10 - Essential (primary) hypertension
--- NOTE | 2021-11-17 15:22 | Hospitalist Progress Note ---
Date of Service November 17, 2021 Assessment & Plan (1) TIA (transient ischemic attack): (2) HTN (hypertension): Plan: 81 yo F presents with strokelike symptoms, likely transient ischemic attack 1.Transient ischemic attack: Left-sided weakness, lasted for about 40 minutes at 10:30 a.m. Currently, asymptomatic. Initial workup with CTA of the head and neck is unremarkable. Full stroke workup with MRI scan and echo ordered. Brain MRI IMPRESSION: 1. No acute intracranial findings. 2. No intracranial mass or pathologic enhancement. Echo - no ASD Normal LV wall thickness. LV wall motion normal. LVEF 66 5%. Grade 1 diastolic dysfunction. She was given aspirin in the ER. Will continue with aspirin daily. Also started on Lipitor. lipid profile: LDL 137, cholesterol 199, HDL 44 HbA1c 5.2% Speech evaluation and PT/OT , per PT ok to return home Monitor in the tele floor. Per patient, she had a Zio patch, 14-day study done, will review results. Neurology consulted 2. History of sarcoidosis, not requiring any treatment. 3. Hypertension: Blood pressure elevated on admission, now more controlled - currently 144/74 Allowed permissive blood pressure on admission and continued her metoprolol succinate and placed on IV hydralazine p.r.n. for systolic blood pressure greater than 180 and monitor blood pressure in the hospital. 4. Dysphagia: The patient recently saw GI for dysphagia. There is a plan for EGD, but the patient is not considering it at this time.Speech evaluation completed. DVT prophylaxis:SCDs for now. DISPOSITION:tele floor.Plan to DC home and follow up w/ PCP and neurology Full code. Admission and Anticipated Discharge Date Admission Date: November 16, 2021 Subjective Patient seen in follow-up strokelike symptoms Currently patient feels well, denies any weakness, vision changes, headache, num bness tingling in any extremity She also denies any fevers, chills, chest pain or shortness of breath, abdominal pain, nausea vomiting She does report that she was having headaches before and palpitations, and was started on metoprolol, as well as having 14-day Zio patch study Review of Systems Review of Systems: All systems reviewed & are unremarkable except as noted in Subjective Physical Exam Physical Exam: GENERAL: The patient is of moderate build, not in acute distress. HEENT: NC/AT. EOMI. Pupils equal, round, and reactive to light. Oral mucosa moist. NECK: No JVD. No neck masses. CARDIOVASCULAR: S1 and S2 heard. Regular rate and rhythm. No murmur, no gallop. RESPIRATORY: Normal AP diameter. No accessory muscle use. No wheezing, no crackles. ABDOMEN: Soft, bowel sounds present, nontender, no distention. NEURO: Alert and oriented. No facial droop. Tongue midline. Speech is clear. Power 5/5 in all extremities. Sensation is intact. Position sense intact. No pronator drift. Coordination of movements normal. EXTREMITIES: No edema, no erythema. Results & Data Results & Data ([facility]) Vital Signs (Past 12 Hours) Vital Signs Temp Pulse Resp BP Pulse Ox 11/17/21 11:39 36.8 C 59 L 144/74 H 97 11/17/21 08:00 36.7 C 78 20 152/67 H 98 11/17/21 03:42 36.5 C 63 18 149/81 H 97 Laboratory Results 11/17/21 11/17/21 11/17/21 Range/Units 06:16 06:16 06:16 WBC 6.59 (4.8-10.8) K/uL RBC 4.26 (4.2-5.4) M/uL Hgb 12.7 (12.0-16.0) g/dL Hct 37.5 (37-47) % MCV 88.0 (80-100) fL MCH 29.8 (25-34) pg MCHC 33.9 (32-36) g/dL RDW Std Deviation 40.2 (36.4-46.3) fL RDW Coeff of Francine 12.6 (11.5-14.5) % Plt Count 240 (130-400) K/uL MPV 9.2 (7.4-10.4) fL Immature Gran % (Auto) 0.2 % Neut % (Auto) 50.5 % Lymph % (Auto) 33.8 % Warrick % (Auto) 11.5 % Eos % (Auto) 3.2 % Baso % (Auto) 0.8 % Neut # (Auto) 3.33 (1.4-6.5) K/uL Lymph # (Auto) 2.23 (1.2-3.4) K/uL Warrick # (Auto) 0.76 H (0.11-0.59) K/uL Eos # (Auto) 0.21 (0-0.5) K/uL Baso # (Auto) 0.05 (0-0.2) K/uL Immature Gran # (Auto) 0.01 (0.00-0.02) K/uL Neutrophils % (Manual) % Lymphocytes % (Manual) % Reactive Lymphs % (Man) % Monocytes % (Manual) % Eosinophils % (Manual) % Neutrophils # (Manual) (1.4-6.5) K/uL Total Absolute Neuts (1.4-6.5) K/uL Lymphocytes # (Manual) (1.2-3.4) K/uL Reactive Lymphs # K/uL Total Abs Lymphocytes (1.2-3.4) K/uL Monocytes # (Manual) (0.11-0.59) K/uL Eosinophils # (Manual) (0-0.5) K/uL Platelet Estimate (Normal) RBC Morphology Sodium 140 (136-145) mmol/L Potassium 3.6 (3.5-5.1) mmol/L Chloride 108 H (98-107) mmol/L Carbon Dioxide 26 (21-32) mmol/L Anion Gap 6.0 (3-11) BUN 12 (7-18) mg/dl Creatinine 0.68 (0.6-1.2) mg/dl Est Cr Clr Drug Dosing 57.1 ml/min Est GFR ( Amer) 95.8 ml/min Est GFR (Non-Af Amer) 82.6 ml/min BUN/Creatinine Ratio 17.4 (10-20) Glucose 87 (70-99) mg/dl Estimat Average Glucose 103 mg/dl Hemoglobin A1c 5.2 (4.5-5.6) % Calcium 9.1 (8.5-10.1) mg/dl Total Bilirubin (0.2-1) mg/dl AST (15-37) U/L ALT (12-78) Alkaline Phosphatase (45-117) U/L Total Protein (6.4-8.2) gm/dl Albumin (3.4-5.0) gm/dl Globulin (2.5-4.0) gm/dl Albumin/Globulin Ratio (0.9-2) Triglycerides 88 (0-150) mg/dl Cholesterol 199 (0-200) mg/dl LDL Cholesterol, Calc 137 mg/dl VLDL Cholesterol, Calc 18 mg/dl HDL Cholesterol 44 mg/dl Cholesterol/HDL Ratio 5 Urine Color Urine Appearance (Clear) Urine pH (4.5-7.5) Ur Specific [place] (1.000-1.030) Urine Protein (Negative) Urine Glucose (UA) (Negative) Urine Ketones (Negative) Urine Blood (Negative) Urine Nitrite (Negative) Urine Bilirubin (Negative) Urine Urobilinogen (Negative) Ur Leukocyte Esterase (Negative) Urine WBC (Auto) (0-5) /hpf Urine RBC (Auto) (0-4) /hpf U Hyaline Cast (Auto) (0-5) /lpf U Epithel Cells (Auto) (0-5) /lpf Urine Bacteria (Auto) (Negative) SARS-CoV-2, RNA, NAAT (NEGATIVE) 11/17/21 11/16/21 11/16/21 Range/Units 00:38 21:04 16:38 WBC (4.8-10.8) K/uL RBC (4.2-5.4) M/uL Hgb (12.0-16.0) g/dL Hct (37-47) % MCV (80-100) fL MCH (25-34) pg MCHC (32-36) g/dL RDW Std Deviation (36.4-46.3) fL RDW Coeff of Francine (11.5-14.5) % Plt Count (130-400) K/uL MPV (7.4-10.4) fL Immature Gran % (Auto) % Neut % (Auto) % Lymph % (Auto) % Warrick % (Auto) % Eos % (Auto) % Baso % (Auto) % Neut # (Auto) (1.4-6.5) K/uL Lymph # (Auto) (1.2-3.4) K/uL Warrick # (Auto) (0.11-0.59) K/uL Eos # (Auto) (0-0.5) K/uL Baso # (Auto) (0-0.2) K/uL Immature Gran # (Auto) (0.00-0.02) K/uL Neutrophils % (Manual) % Lymphocytes % (Manual) % Reactive Lymphs % (Man) % Monocytes % (Manual) % Eosinophils % (Manual) % Neutrophils # (Manual) (1.4-6.5) K/uL Total Absolute Neuts (1.4-6.5) K/uL Lymphocytes # (Manual) (1.2-3.4) K/uL Reactive Lymphs # K/uL Total Abs Lymphocytes (1.2-3.4) K/uL Monocytes # (Manual) (0.11-0.59) K/uL Eosinophils # (Manual) (0-0.5) K/uL Platelet Estimate (Normal) RBC Morphology Sodium 138 (136-145) mmol/L Potassium 3.9 (3.5-5.1) mmol/L Chloride 107 (98-107) mmol/L Carbon Dioxide 28 (21-32) mmol/L Anion Gap 3.0 (3-11) BUN 13 (7-18) mg/dl Creatinine 0.80 (0.6-1.2) mg/dl Est Cr Clr Drug Dosing 49.7 ml/min Est GFR ( Amer) 80.7 ml/min Est GFR (Non-Af Amer) 69.6 ml/min BUN/Creatinine Ratio 16.9 (10-20) Glucose 83 (70-99) mg/dl Estimat Average Glucose mg/dl Hemoglobin A1c (4.5-5.6) % Calcium 9.6 (8.5-10.1) mg/dl Total Bilirubin 0.2 (0.2-1) mg/dl AST 14 L (15-37) U/L ALT 22 (12-78) Alkaline Phosphatase 77 (45-117) U/L Total Protein 7.8 (6.4-8.2) gm/dl Albumin 3.8 (3.4-5.0) gm/dl Globulin 4.0 (2.5-4.0) gm/dl Albumin/Globulin Ratio 1.0 (0.9-2) Triglycerides (0-150) mg/dl Cholesterol (0-200) mg/dl LDL Cholesterol, Calc mg/dl VLDL Cholesterol, Calc mg/dl HDL Cholesterol mg/dl Cholesterol/HDL Ratio Urine Color Yellow Urine Appearance Clear (Clear) Urine pH 7.5 (4.5-7.5) Ur Specific [place] > 1.045 H (1.000-1.030) Urine Protein Negative (Negative) Urine Glucose (UA) Negative (Negative) Urine Ketones Negative (Negative) Urine Blood Negative (Negative) Urine Nitrite Negative (Negative) Urine Bilirubin Negative (Negative) Urine Urobilinogen Negative (Negative) Ur Leukocyte Esterase Trace H (Negative) Urine WBC (Auto) 1-5 (0-5) /hpf Urine RBC (Auto) 0-4 (0-4) /hpf U Hyaline Cast (Auto) 0 (0-5) /lpf U Epithel Cells (Auto) 0-5 (0-5) /lpf Urine Bacteria (Auto) Negative (Negative) SARS-CoV-2, RNA, NAAT NEGATIVE (NEGATIVE) 11/16/21 Range/Units 16:38 WBC 7.34 (4.8-10.8) K/uL RBC 4.81 (4.2-5.4) M/uL Hgb 14.5 (12.0-16.0) g/dL Hct 42.4 (37-47) % MCV 88.1 (80-100) fL MCH 30.1 (25-34) pg MCHC 34.2 (32-36) g/dL RDW Std Deviation 40.1 (36.4-46.3) fL RDW Coeff of Francine 12.5 (11.5-14.5) % Plt Count 305 (130-400) K/uL MPV 10.0 (7.4-10.4) fL Immature Gran % (Auto) % Neut % (Auto) % Lymph % (Auto) % Warrick % (Auto) % Eos % (Auto) % Baso % (Auto) % Neut # (Auto) (1.4-6.5) K/uL Lymph # (Auto) (1.2-3.4) K/uL Warrick # (Auto) (0.11-0.59) K/uL Eos # (Auto) (0-0.5) K/uL Baso # (Auto) (0-0.2) K/uL Immature Gran # (Auto) (0.00-0.02) K/uL Neutrophils % (Manual) 55.6 % Lymphocytes % (Manual) 16.5 % Reactive Lymphs % (Man) 18.3 % Monocytes % (Manual) 6.1 % Eosinophils % (Manual) 3.5 % Neutrophils # (Manual) 4.08 (1.4-6.5) K/uL Total Absolute Neuts 4.08 (1.4-6.5) K/uL Lymphocytes # (Manual) 1.21 (1.2-3.4) K/uL Reactive Lymphs # 1.34 K/uL Total Abs Lymphocytes 2.55 (1.2-3.4) K/uL Monocytes # (Manual) 0.45 (0.11-0.59) K/uL Eosinophils # (Manual) 0.26 (0-0.5) K/uL Platelet Estimate Normal (Normal) RBC Morphology Unremarkable Sodium (136-145) mmol/L Potassium (3.5-5.1) mmol/L Chloride (98-107) mmol/L Carbon Dioxide (21-32) mmol/L Anion Gap (3-11) BUN (7-18) mg/dl Creatinine (0.6-1.2) mg/dl Est Cr Clr Drug Dosing ml/min Est GFR ( Amer) ml/min Est GFR (Non-Af Amer) ml/min BUN/Creatinine Ratio (10-20) Glucose (70-99) mg/dl Estimat Average Glucose mg/dl Hemoglobin A1c (4.5-5.6) % Calcium (8.5-10.1) mg/dl Total Bilirubin (0.2-1) mg/dl AST (15-37) U/L ALT (12-78) Alkaline Phosphatase (45-117) U/L Total Protein (6.4-8.2) gm/dl Albumin (3.4-5.0) gm/dl Globulin (2.5-4.0) gm/dl Albumin/Globulin Ratio (0.9-2) Triglycerides (0-150) mg/dl Cholesterol (0-200) mg/dl LDL Cholesterol, Calc mg/dl VLDL Cholesterol, Calc mg/dl HDL Cholesterol mg/dl Cholesterol/HDL Ratio Urine Color Urine Appearance (Clear) Urine pH (4.5-7.5) Ur Specific [place] (1.000-1.030) Urine Protein (Negative) Urine Glucose (UA) (Negative) Urine Ketones (Negative) Urine Blood (Negative) Urine Nitrite (Negative) Urine Bilirubin (Negative) Urine Urobilinogen (Negative) Ur Leukocyte Esterase (Negative) Urine WBC (Auto) (0-5) /hpf Urine RBC (Auto) (0-4) /hpf U Hyaline Cast (Auto) (0-5) /lpf U Epithel Cells (Auto) (0-5) /lpf Urine Bacteria (Auto) (Negative) SARS-CoV-2, RNA, NAAT (NEGATIVE) Medications Administered Current Inpatient Medications Acetaminophen (Acetaminophen 325 Mg Tab) 650 mg PO Q4H PRN PRN Reason: Pain or Fever Stop: 12/16/21 23:18 Aspirin (Aspirin 81 Mg Ectab) 81 mg PO DAILY [facility] Stop: 12/17/21 08:59 Last Admin: 11/17/21 07:58 Dose: 81 mg Documented by: Atorvastatin Calcium (Atorvastatin 40 Mg Tab) 40 mg PO QAM [facility] Stop: 12/17/21 08:59 Last Admin: 11/17/21 07:58 Dose: 40 mg Documented by: Hydralazine HCl (Hydralazine Hcl 20 Mg/Ml Vial) 7.5 mg IV Q6H PRN PRN Reason: Hypertension Stop: 12/16/21 23:18 Last Admin: 11/17/21 00:35 Dose: 7.5 mg Documented by: Metoprolol Succinate (Metoprolol Succ 25mg Ext Rel Tab) 25 mg PO DAILY [facility] Stop: 12/17/21 08:59 Last Admin: 11/17/21 07:58 Dose: 25 mg Documented by: Miscellaneous Information (Pharmacist Discharge Med Rec Consult) 1 ea N/A UD PRN PRN Reason: Consult Stop: 12/17/21 00:26 Nitroglycerin (Nitroglycerin Sl 0.4 Mg/Tab Tab) 0.4 mg SL UD PRN PRN Reason: Chest Pain Stop: 12/17/21 00:26 Ondansetron HCl (Ondansetron Inj 2 Mg/Ml 2 Ml Vial) 4 mg IV Q6H PRN PRN Reason: Nausea Stop: 12/17/21 00:26 (1) HTN (hypertension) Hypertension type: unspecified Qualified Code(s): I10 - Essential (primary) hypertension
--- NOTE | 2021-11-17 16:30 | Discharge Summary ---
Date of Service November 17, 2021 Admission HPI Per Admitting Provider This is an 81-year-old female with past medical history significant for sarcoidosis but currently not requiring any treatment, history of hypertension, carpal tunnel syndrome, who presents from home because of transient left-sided weakness. The patient says around 10:30 a.m., she was trying to pick some papers from the table, when she suddenly felt her left upper extremity was not working. Then she tried to rotate, but her left leg also was weak, gave up, and she slowly slid down to the floor. At that time, she had a left-sided headache. She lives with her daughter and her , but she did not want to come to the hospital at that time. The symptoms lasted for about 40 minutes and got resolved. Now she is back to baseline. Currently, she has some mild headache. During the episode, she felt a funny feeling in the heart, like a kind of dizzy feeling of the head. Currently, no blurred visions, no earache, no runny nose, no sore throat, no cough, no fevers, no chest pain, no shortness of breath, no nausea, no vomiting, no abdominal pain. Normal bowel and bladder movements. Resting comfortably and hemodynamically stable. Admission Exam Per Admitting Provider GENERAL: The patient is of moderate build, not in acute distress. VITAL SIGNS: Temperature 36.6, pulse 62, respiratory rate 18, blood pressure 181/84, oxygen 99% on room air. HEENT: Pupils equal, round, and reactive to light. Oral mucosa moist. NECK: No JVD. No neck masses. CARDIOVASCULAR: S1 and S2 heard. Regular rate and rhythm. No murmur, no gallop. RESPIRATORY SYSTEM: Normal AP diameter. No accessory muscle use. No wheezing, no crackles. ABDOMEN: Soft, bowel sounds present, nontender, no distention. CENTRAL NERVOUS SYSTEM: Alert and oriented. No facial droop. Tongue midline. Speech is clear. Power 5/5 in all extremities. Sensation is intact. Position sense intact. No pronator drift. Coordination of movements normal. EXTREMITIES: No edema, no erythema. Principal Diagnosis Transient ischemic attack Discharge Exam GENERAL: The patient is of moderate build, not in acute distress. HEENT: NC/AT. EOMI. Pupils equal, round, and reactive to light. Oral mucosa moist. NECK: No JVD. No neck masses. CARDIOVASCULAR: S1 and S2 heard. Regular rate and rhythm. No murmur, no gallop. RESPIRATORY: Normal AP diameter. No accessory muscle use. No wheezing, no crackles. ABDOMEN: Soft, bowel sounds present, nontender, no distention. NEURO: Alert and oriented. No facial droop. Tongue midline. Speech is clear. Power 5/5 in all extremities. Sensation is intact. Position sense intact. No pronator drift. Coordination of movements normal. EXTREMITIES: No edema, no erythema. Discharge Data Allergies Allergy/AdvReac Type Severity Reaction Status Date / Time naproxen Allergy Intermediate itch Verified 11/16/21 20:38 codeine Allergy Unknown unknown Verified 11/16/21 20:38 pseudoephedrine AdvReac Intermediate saw black Verified 11/16/21 20:38 spots Consultations 11/16/21 22:07 ED Decision to Admit Stat 11/17/21 08:00 Consult Neurology Routine Ordered Studies 11/16/21 20:40 CT angio head wo/w Stat IMPRESSION: Essentially negative CT angiogram of the brain with contrast. CT angio neck with con Stat Impression: Essentially negative CT angiogram of the neck with contrast. 11/17/21 00:27 MR brain wo/w con Urgent IMPRESSION: 1. No acute intracranial findings. 2. No intracranial mass or pathologic enhancement. Hospital Course (1) TIA (transient ischemic attack): (2) HTN (hypertension): 81 yo F presents with strokelike symptoms, likely transient ischemic attack 1.Transient ischemic attack: Left-sided weakness, lasted for about 40 minutes at 10:30 a.m. Currently, asymptomatic. Initial workup with CTA of the head and neck is unremarkable. Full stroke workup with MRI scan and echo ordered. Brain MRI IMPRESSION: 1. No acute intracranial findings. 2. No intracranial mass or pathologic enhancement. Echo - no ASD Normal LV wall thickness. LV wall motion normal. LVEF 66 5%. Grade 1 diastolic dysfunction. She was given aspirin in the ER. Will continue with aspirin daily. Also started on Lipitor. lipid profile: LDL 137, cholesterol 199, HDL 44 HbA1c 5.2% Speech evaluation and PT/OT , per PT ok to return home Monitor in the tele floor. Per patient, she had a Zio patch, 14-day study done, review results. Neurology consulted -Follow up arranged 2. History of sarcoidosis, not requiring any treatment. 3. Hypertension: Blood pressure elevated on admission, now more controlled - currently 144/74 Allowed permissive blood pressure on admission and continued her metoprolol succinate and placed on IV hydralazine p.r.n. for systolic blood pressure greater than 180 and monitor blood pressure in the hospital. Plan to DC home and follow up w/ PCP and neurology Total Time Total Time Spent Total Time Spent (In Minutes): 40 Discharge Plan Discharge Items Patient Disposition: Home - Self-Care Reason For Visit: TIA / CVA Discharge Diagnosis: Transient ischemic attack Activity: Per Instructions section Non-emergency contact: Primary Care Provider and Neurologist Call non-emergency contact if: you have any medication questions and your symptoms worsen Follow-up/Referrals: Alyse Figueroa PA-C [Physician Plastic Surgery Technician] - (Date & Time 12/14/2021 11:20 AM Provider Alyse Figueroa PA-C Department Neurology [facility] ) Misael Pearson MD [Primary Care Provider] - (Date & Time 11/23/2021 11:00 AM Provider Misael Pearson III, MD Department Family Practice [facility] ) Diet: Heart Healthy Addtl Attending Provider Instructions: Follow up with your primary care doctor, the appointment was scheduled for you for November 23. Follow-up with neurology on December 14. It is recommended that you take aspirin 81 mg daily. In addition, you were started on lipitor, take it as prescribed. Pending Studies at Discharge: No Stand-Alone Forms: Medications to Prevent Stroke, My [facility], oking Cessation Medications and DC Order Prescriptions: New aspirin 81 mg Tablet,Delayed Release (Dr/Ec) 81 mg PO DAILY Qty: 30 RF: 0 atorvastatin 40 mg Tablet 40 mg PO QAM Qty: 30 RF: 0 Continued metoprolol succinate 25 mg tablet extended release 24 hr 25 mg PO DAILY RF: 0 Discontinued Low-Dose Aspirin 81 mg Tablet 405 mg PO .TODAY RF: 0 Discharge Orders: Discharge Order (Routine); Ordered 11/17/21 Ordered By: Leland Be Admission Data Admit Date/Time: 11/16/21 23:16 Attending Provider: Leland Be Admit Provider: Anant Abel Primary Care Provider: Misael Pearson Other Providers: Anant Abel ; Alyse Figueroa ; Misael Key ; Alyse Armas ; Blane Bullock.
[2021-11-17] MEDS ORDERED: STROKE PATIENT DISCHARGE STA (16:56)
--- NOTE | 2021-11-17 17:01 | Communication Note ---
Date of Service: November 17, 2021 Code 44 attestation: She is an 81-year-old female with significant past medical history of sarcoidosis, hypertension and carpal tunnel syndrome was admitted with transient left-sided weakness which resolved subsequently. She has had relevant investigation including MRI of the brain which came out to be unremarkable and her symptoms resolved. She was evaluated by neurologist and by the attending and is felt that she can be discharged today. By [facility] guidelines, a determination that the admission or continued stay is not medically necessary has been made by a member of the UR committee and a physician for this hospital stay, therefore a Code 44 will be completed and the Inpatient admission will be changed to outpatient. Dr Maxine Aponte Member UR Committee
--- NOTE | 2021-11-17 17:14 | Pharmacy Report ---
Pharmacist Stroke Counseling - Date of Service November 17, 2021 - Scope: Pharmacy has been consulted to provide medication discharge counseling for this patient admitted with transient ischemic attack as per the Pharmacist Discharge Counseling for Stroke Patients Protocol. - Medications on Discharge: Home Medications Medication Instructions Recorded Confirmed aspirin 81 mg tablet 405 mg PO .TODAY 11/16/21 11/16/21 metoprolol succinate 25 mg 25 mg PO DAILY 11/16/21 11/16/21 tablet,extended release 24 hr New Rx's Medication Instructions Recorded aspirin 81 mg tablet,delayed 81 mg PO DAILY #30 tab 11/17/21 release atorvastatin 40 mg tablet 40 mg PO QAM #30 tab 11/17/21 - Action: The above medications, specifically ones for stroke treatment/prophylaxis, have been reviewed in detail with the patient prior to discharge. This includes indication, common adverse reactions, drug interactions, and medication administration. Medication counseling has been employed using the teach-back method to ensure understanding. - Outcome: The patient have demonstrated understanding of the medications. Additional comments: -instructed patient on where to store medications (recommended not the bathroom due to heat and humidity) Thank you for allowing pharmacy to be involved in the care of this patient. Please call [phone] with any additional questions
== END 2021-11-17 19:05 | disposition home or self-care (01) | DRG 69 ==
LOC: ED 14:37 → 2S 23:16